=== PATIENT | female | born 1980 | race Caucasian/White ===

== ENCOUNTER 2016-08-18 12:23 | Emergency (ER) | payer OTHER ==
[~2016-08-18 12:23] MED LIST: /MOM400 PO; ACET50TA PO; ANUS2.5C2 TOP; COLA100C PO; DOCU10ELUD PO; EXTR500C4 PO; IBUP-1114 PO; IBUP100SUS PO; MACR100C3 PO; MOTR200T44 PO
--- NOTE | 2016-08-18 13:56 | EDDOCDS ---
Physician Documentation [facility] Name: Nichole Ansari Age: 36 yrs Sex: Female : 1980 Arrival Date: 08/18/2016 Time: 12:23 Bed I9 / 22 Private MD: NO PRIMARY PHYSICIAN, . Disposition: 08/18/16 13:41 Discharged to Home/Self Care. Impression: Urinary tract infection, site not specified. - Condition is Stable. - Discharge Instructions: Urinary Tract Infection, [id number]-[id number]. - Prescriptions for Pyridium 200 mg Oral Tablet - take 1 tablet by ORAL route every 8 hours for 3 days; 9 tablet. Bactrim DS 800- 160 mg Oral Tablet - take 1 tablet by ORAL route every 12 hours for 5 days; 10 tablet. - Medication Reconciliation, Local Pharmacy Hours form. - [facility]; When: 4 - 5 days; Reason: Recheck today's complaints, Continuance of care. - Problem is new. - Symptoms are unchanged. Historical: - Allergies: Erythromycin (Hives); PENICILLINS (Hives); - Home Meds: 1. none - PMHx: Bipolar disorder; Depression; miscarriage; - PSHx: Appendectomy; - Social history: Smoking status: Patient states was never smoker of tobacco. No barriers to communication noted, The patient speaks fluent Greek, Speaks appropriately for age. - Family history: Not pertinent. - : The pt / caregiver states he / she is not on anticoagulants. Home medication list is obtained from the patient. - Exposure Risk Screening:: None identified. Vital Signs: 08/18 12:25 BP 139 / 85; Pulse 84; Resp 18 S; Temp 97.1(O); Pulse Ox 97% on R/A; Weight 133.81 kg / gr2 295 lbs (R); Height 5 ft. 6 in. (167.64 cm) (R); Pain 3/10; 12:25 Body Mass Index 47.61 (133.81 kg, 167.64 cm) gr2 MDM: 12:38 UCG by Nursing ordered. dt4 12:39 Urinalysis Ordered. EDMS 12:40 Urine Culture Ordered. EDMS 13:47 Financial registration complete. mm15 Point of Care Testing: Urine : 13:05 hCG Reading: Negative; Control Reading: Positive; ct3 Ranges: Signatures: Dispatcher [employer] Stevie Kennedy, CREDIT OR LOANS OFFICER CREDIT OR LOANS OFFICER Tata Jay RN RN hs1 Ene Jenkins RN RN dsf Casi Reddy mm15 Racquel Frazier PA-C PAGigi dt4 MTDD
--- NOTE | 2016-08-18 13:56 | EDDOCDS ---
Nurse's Notes [facility] Name: Nichole Ansari Age: 36 yrs Sex: Female : 1980 Arrival Date: 08/18/2016 Time: 12:23 Bed I9 / 22 Private MD: NO PRIMARY PHYSICIAN, . Diagnosis: Urinary tract infection, site not specified Presentation: 08/18 12:27 Presenting complaint: Patient states: thinks UTI -. Adult Sepsis Screening: The patient hs1 does not have new or worsening altered mentation. Patient's respiratory rate is less than 22. Systolic blood pressure is greater than 100. Patient has a qSOFA score of 0- Negative Sepsis Screen. Suicide/Homicide risk assessment- the patient denies having any suicidal and/or homicidal ideations and does not present with any other emotional, behavioral or mental health complaints. Status: Patient is not a community service director or dependent. Transition of care: patient was not received from another setting of care. 12:27 Acuity: ALIS Level 4 hs1 12:27 Method Of Arrival: Walkin/Carried/Asstd hs1 Triage Assessment: 12:28 General: Appears in no apparent distress, comfortable, Behavior is appropriate for age, hs1 cooperative. Pain: Location: low back area Pain currently is 5 out of 10 on a pain scale. HIV screening NA for this visit Offered previously. : Reports burning with urination urgency urinary frequency. Historical: - Allergies: Erythromycin (Hives); PENICILLINS (Hives); - Home Meds: 1. none - PMHx: Bipolar disorder; Depression; miscarriage; - PSHx: Appendectomy; - Social history: Smoking status: Patient states was never smoker of tobacco. No barriers to communication noted, The patient speaks fluent Thai, Speaks appropriately for age. - Family history: Not pertinent. - : The pt / caregiver states he / she is not on anticoagulants. Home medication list is obtained from the patient. - Exposure Risk Screening:: None identified. Screenin:54 Screening information is obtained from the patient. Fall risk: No risks identified. dsf Assistance ADL's: requires no assistance with activities of daily living. Abuse/DV Screen: The patient / caregiver reports he/she is: not in a situation that causes fear, pain or injury. Nutritional screening: No deficits noted. Advance Directives: Currently, there is no health care proxy. Advance Directives: Currently, there is. home support is adequate. Assessment: 13:29 Adult Sepsis Screening: The patient does not have new or worsening altered mentation. dsf Patient's respiratory rate is less than 22. Systolic blood pressure is greater than 100. Patient has a qSOFA score of 0- Negative Sepsis Screen. General: Appears in no apparent distress, Behavior is appropriate for age, cooperative. Pain: Location: low back area Pain currently is 4 out of 10 on a pain scale. Quality of pain is described as sharp. Neurological: Level of Consciousness is awake, alert. Cardiovascular: Capillary refill < 3 seconds. Respiratory: Airway is patent Respiratory effort is even, unlabored, Respiratory pattern is regular, symmetrical. : Reports burning with urination since 2 days ago urinary frequency since 2 days ago. Derm: Skin is pink, warm & dry. 13:54 General: Appears in no apparent distress, comfortable, Behavior is appropriate for age, dsf cooperative. Neurological: Level of Consciousness is awake, alert. Cardiovascular: Capillary refill < 3 seconds. Respiratory: Airway is patent Respiratory effort is even, unlabored, Respiratory pattern is regular, symmetrical. Derm: Skin is pink, warm & dry. Vital Signs: 12:25 BP 139 / 85; Pulse 84; Resp 18 S; Temp 97.1(O); Pulse Ox 97% on R/A; Weight 133.81 kg gr2 (R); Height 5 ft. 6 in. (167.64 cm) (R); Pain 3/10; 12:25 Body Mass Index 47.61 (133.81 kg, 167.64 cm) gr2 Vitals: 12:25 Log In Time: August 18, 2016 at 12:25. gr2 ED Course: 12:24 Patient visited by Luciano Forde. gr2 12:24 NO PRIMARY PHYSICIAN, . is Private Physician. gr2 12:24 Patient moved to Waiting gr2 12:26 Patient visited by Luciano Forde. gr2 12:26 Patient moved to Pre RCE gr2 12:28 Triage Initiated hs1 12:58 Urine Culture Sent. ct3 12:58 Urinalysis Sent. ct3 13:11 Tina Shahid, RN is Primary Nurse. ttb 13:11 Norma Dietrich,ZENA is Primary Nurse. ttb 13:11 Patient moved to I ttb 13:13 [facility] ke 13:14 Patient visited by Stevie Banegas FNP. ke 13:14 Patient visited by Stevie Banegas FNP. ke 13:29 Patient visited by Ene Jenkins RN. dsf 13:40 [facility], [facility] is Referral Physician. ke 13:54 The patient / caregiver is instructed regarding the plan of care and ED course. dsf 13:54 No IV's were initiated during this patient's visit. No procedures done that require dsf assistance. Point of Care Testing: Urine : 13:05 hCG Reading: Negative; Control Reading: Positive; ct3 Ranges: Order Results: Lab Order: Urinalysis; SPEC'M 08/18/16 12:57 Test: APPEARANCE, URINE; Value: HAZY; Range: CLEAR; Status: F Test: COLOR, URINE; Value: YELLOW; Range: YELLOW; Status: F Test: PH,URINE; Value: 6.0; Range: 5.0-9.0; Units: UNITS; Status: F Test: SPECIFIC GRAVITY URINE AUTO; Value: 1.010; Range: 1.002-1.035; Status: F Test: PROTEIN, URINE AUTO; Value: NEGATIVE; Range: NEGATIVE; Units: mg/dL; Status: F Test: GLUCOSE, URINE (UA) AUTO; Value: NEGATIVE; Range: NEGATIVE; Units: mg/dL; Status: F Test: KETONE, URINE AUTO; Value: NEGATIVE; Range: NEGATIVE; Units: mg/dL; Status: F Test: UROBILINOGEN, URINE AUTO; Value: 0.2; Range: 0.0-2.0; Units: mg/dL; Status: F Test: BILIRUBIN, URINE AUTO; Value: NEGATIVE; Range: NEGATIVE; Status: F Test: NITRITE, URINE AUTO; Value: NEGATIVE; Range: NEGATIVE; Status: F Test: LEUKOCYTE ESTERASE, URINE AUTO; Value: 3+; Range: NEGATIVE; Abnormal: Above high normal; Status: F Test: BLOOD, URINE BLOOD; Value: NEGATIVE; Range: NEGATIVE; Status: F Test: WBC, URINE AUTO; Value: 11; Range: 0-3; Abnormal: Above high normal; Units: /HPF; Status: F Test: RBC, URINE AUTO; Value: 7; Range: 0-3; Abnormal: Above high normal; Units: /HPF; Status: F Test: BACTERIA, URINE AUTO; Value: 1+; Range: NEGATIVE; Abnormal: Above high normal; Status: F Test: SQUAMOUS EPITHELIAL CELL UR AU; Value: 6; Range: 0-6; Units: /HPF; Status: F Test: MUCUS, URINE; Value: SMALL; Range: NEGATIVE; Status: F Test: HYALINE CAST, URINE AUTO; Value: 0; Range: 0-1; Units: /LPF; Status: F Outcome: 13:41 Discharge ordered by Provider. 13:54 Discharge Assessment: Patient awake, alert and oriented x 3. No cognitive and/or dsf functional deficits noted. Patient verbalized understanding of disposition instructions. patient administered narcotics - no. The following High Risk Discharge criteria are identified: None. Discharged to home ambulatory. Condition: stable. Discharge instructions given to patient, Instructed on discharge instructions, follow up and referral plans. medication usage, Demonstrated understanding of instructions, medications, Pt was receptive of discharge instructions/ teaching. Prescriptions given X 2. No special radiology studies were completed. Property sent home with patient. 13:55 Patient left the ED. dsf Signatures: Stevie Banegas, PAPER DELIVERER PAPER DELIVERER Tata Jay RN RN hs1 Elise Gooden, PIPELINE GANG SUPERVISOR PIPELINE GANG SUPERVISOR ct3 Ene Jenkins RN RN dsf Manuela Dewitt RN RN Luciano Joseph gr2 MTDD
--- NOTE | 2016-08-20 14:56 | EDDOCDS ---
Physician Documentation [facility] Name: Nichole Ansari Age: 36 yrs Sex: Female : 1980 Arrival Date: 08/18/2016 Time: 12:23 Bed I9 / 22 Private MD: NO PRIMARY PHYSICIAN, . Disposition: 08/18/16 13:41 Discharged to Home/Self Care. Impression: Urinary tract infection, site not specified. - Condition is Stable. - Discharge Instructions: Urinary Tract Infection, [id number]. - Prescriptions for Pyridium 200 mg Oral Tablet - take 1 tablet by ORAL route every 8 hours for 3 days; 9 tablet. Bactrim DS 800- 160 mg Oral Tablet - take 1 tablet by ORAL route every 12 hours for 5 days; 10 tablet. - Medication Reconciliation, Local Pharmacy Hours form. - Follow up[facility]; When: 4 - 5 days; Reason: Recheck today's complaints, Continuance of care. - Problem is new. - Symptoms are unchanged. Historical: - Allergies: Erythromycin (Hives); PENICILLINS (Hives); - Home Meds: 1. none - PMHx: Bipolar disorder; Depression; miscarriage; - PSHx: Appendectomy; - Social history: Smoking status: Patient states was never smoker of tobacco. No barriers to communication noted, The patient speaks fluent Serbian, Speaks appropriately for age. - Family history: Not pertinent. - : The pt / caregiver states he / she is not on anticoagulants. Home medication list is obtained from the patient. - Exposure Risk Screening:: None identified. Vital Signs: 08/18 12:25 BP 139 / 85; Pulse 84; Resp 18 S; Temp 97.1(O); Pulse Ox 97% on R/A; Weight 133.81 kg / gr2 295 lbs (R); Height 5 ft. 6 in. (167.64 cm) (R); Pain 3/10; 12:25 Body Mass Index 47.61 (133.81 kg, 167.64 cm) gr2 MDM: 12:38 UCG by Nursing ordered. dt4 12:39 Urinalysis Ordered. EDMS 12:40 Urine Culture Ordered. EDMS 13:47 Financial registration complete. mm15 14:19 [facility] Payment Agreement was scanned into [employer] and attached to record. mm15 08/19 11:45 T-Sheet-- Draft Copy was scanned into [employer] and attached to record. gb Point of Care Testing: Urine : 08/18 13:05 hCG Reading: Negative; Control Reading: Positive; ct3 Ranges: Signatures: Dispatcher [employer] EDMS Hanna Tolbert, Reg Reg gb Stevie Banegas, CARD ROOM MANAGER CARD ROOM MANAGER Tata Jay RN RN hs1 Ene Jenkins RN RN dsf Casi Reddy mm15 Racquel Frazier PA-C PAGigi dt4 The chart was reviewed and I authenticate all verbal orders and agree with the evaluation and treatment provided.Attachments: 14:19 [facility] Payment Agreement mm15 08/19 11:45 T-Sheet-- Draft Copy gb Chart Complete MTDD
--- NOTE | 2016-08-20 14:56 | EDDOCDS ---
Nurse's Notes [facility] Name: Nichole Ansari Age: 36 yrs Sex: Female : 1980 Arrival Date: 08/18/2016 Time: 12:23 Bed I9 / 22 Private MD: NO PRIMARY PHYSICIAN, . Diagnosis: Urinary tract infection, site not specified Presentation: 08/18 12:27 Presenting complaint: Patient states: thinks UTI -. Adult Sepsis Screening: The patient hs1 does not have new or worsening altered mentation. Patient's respiratory rate is less than 22. Systolic blood pressure is greater than 100. Patient has a qSOFA score of 0- Negative Sepsis Screen. Suicide/Homicide risk assessment- the patient denies having any suicidal and/or homicidal ideations and does not present with any other emotional, behavioral or mental health complaints. Status: Patient is not a customer complaint service supervisor or dependent. Transition of care: patient was not received from another setting of care. 12:27 Acuity: ALIS Level 4 hs1 12:27 Method Of Arrival: Walkin/Carried/Asstd hs1 Triage Assessment: 12:28 General: Appears in no apparent distress, comfortable, Behavior is appropriate for age, hs1 cooperative. Pain: Location: low back area Pain currently is 5 out of 10 on a pain scale. HIV screening NA for this visit Offered previously. : Reports burning with urination urgency urinary frequency. Historical: - Allergies: Erythromycin (Hives); PENICILLINS (Hives); - Home Meds: 1. none - PMHx: Bipolar disorder; Depression; miscarriage; - PSHx: Appendectomy; - Social history: Smoking status: Patient states was never smoker of tobacco. No barriers to communication noted, The patient speaks fluent Malay, Speaks appropriately for age. - Family history: Not pertinent. - : The pt / caregiver states he / she is not on anticoagulants. Home medication list is obtained from the patient. - Exposure Risk Screening:: None identified. Screenin:54 Screening information is obtained from the patient. Fall risk: No risks identified. dsf Assistance ADL's: requires no assistance with activities of daily living. Abuse/DV Screen: The patient / caregiver reports he/she is: not in a situation that causes fear, pain or injury. Nutritional screening: No deficits noted. Advance Directives: Currently, there is no health care proxy. Advance Directives: Currently, there is. home support is adequate. Assessment: 13:29 Adult Sepsis Screening: The patient does not have new or worsening altered mentation. dsf Patient's respiratory rate is less than 22. Systolic blood pressure is greater than 100. Patient has a qSOFA score of 0- Negative Sepsis Screen. General: Appears in no apparent distress, Behavior is appropriate for age, cooperative. Pain: Location: low back area Pain currently is 4 out of 10 on a pain scale. Quality of pain is described as sharp. Neurological: Level of Consciousness is awake, alert. Cardiovascular: Capillary refill < 3 seconds. Respiratory: Airway is patent Respiratory effort is even, unlabored, Respiratory pattern is regular, symmetrical. : Reports burning with urination since 2 days ago urinary frequency since 2 days ago. Derm: Skin is pink, warm & dry. 13:54 General: Appears in no apparent distress, comfortable, Behavior is appropriate for age, dsf cooperative. Neurological: Level of Consciousness is awake, alert. Cardiovascular: Capillary refill < 3 seconds. Respiratory: Airway is patent Respiratory effort is even, unlabored, Respiratory pattern is regular, symmetrical. Derm: Skin is pink, warm & dry. Vital Signs: 12:25 BP 139 / 85; Pulse 84; Resp 18 S; Temp 97.1(O); Pulse Ox 97% on R/A; Weight 133.81 kg gr2 (R); Height 5 ft. 6 in. (167.64 cm) (R); Pain 3/10; 12:25 Body Mass Index 47.61 (133.81 kg, 167.64 cm) gr2 Vitals: 12:25 Log In Time: August 18, 2016 at 12:25. gr2 ED Course: 12:24 Patient visited by Luciano Forde. gr2 12:24 NO PRIMARY PHYSICIAN, . is Private Physician. gr2 12:24 Patient moved to Waiting gr2 12:26 Patient visited by Luciano Forde. gr2 12:26 Patient moved to Pre RCE gr2 12:28 Triage Initiated hs1 12:58 Urine Culture Sent. ct3 12:58 Urinalysis Sent. ct3 13:11 Tina Shahid, RN is Primary Nurse. ttb 13:11 Norma Dietrich,ZENA is Primary Nurse. ttb 13:11 Patient moved to I ttb 13:13 [facility] ke 13:14 Patient visited by Stevie Banegas FNP. ke 13:14 Patient visited by Stevie Banegas FNP. ke 13:29 Patient visited by Ene Jenkins RN. dsf 13:40 [facility], [facility] is Referral Physician. ke 13:54 The patient / caregiver is instructed regarding the plan of care and ED course. dsf 13:54 No IV's were initiated during this patient's visit. No procedures done that require dsf assistance. 14:[address] [facility] Payment Agreement was scanned into [employer] and attached to record. mm15 08/19 11:45 T-Sheet-- Draft Copy was scanned into [employer] and attached to record. gb Point of Care Testing: Urine : 08/18 13:05 hCG Reading: Negative; Control Reading: Positive; ct3 Ranges: Order Results: Lab Order: Urinalysis; SPEC'M 08/18/16 12:57 Test: APPEARANCE, URINE; Value: HAZY; Range: CLEAR; Status: F Test: COLOR, URINE; Value: YELLOW; Range: YELLOW; Status: F Test: PH,URINE; Value: 6.0; Range: 5.0-9.0; Units: UNITS; Status: F Test: SPECIFIC GRAVITY URINE AUTO; Value: 1.010; Range: 1.002-1.035; Status: F Test: PROTEIN, URINE AUTO; Value: NEGATIVE; Range: NEGATIVE; Units: mg/dL; Status: F Test: GLUCOSE, URINE (UA) AUTO; Value: NEGATIVE; Range: NEGATIVE; Units: mg/dL; Status: F Test: KETONE, URINE AUTO; Value: NEGATIVE; Range: NEGATIVE; Units: mg/dL; Status: F Test: UROBILINOGEN, URINE AUTO; Value: 0.2; Range: 0.0-2.0; Units: mg/dL; Status: F Test: BILIRUBIN, URINE AUTO; Value: NEGATIVE; Range: NEGATIVE; Status: F Test: NITRITE, URINE AUTO; Value: NEGATIVE; Range: NEGATIVE; Status: F Test: LEUKOCYTE ESTERASE, URINE AUTO; Value: 3+; Range: NEGATIVE; Abnormal: Above high normal; Status: F Test: BLOOD, URINE BLOOD; Value: NEGATIVE; Range: NEGATIVE; Status: F Test: WBC, URINE AUTO; Value: 11; Range: 0-3; Abnormal: Above high normal; Units: /HPF; Status: F Test: RBC, URINE AUTO; Value: 7; Range: 0-3; Abnormal: Above high normal; Units: /HPF; Status: F Test: BACTERIA, URINE AUTO; Value: 1+; Range: NEGATIVE; Abnormal: Above high normal; Status: F Test: SQUAMOUS EPITHELIAL CELL UR AU; Value: 6; Range: 0-6; Units: /HPF; Status: F Test: MUCUS, URINE; Value: SMALL; Range: NEGATIVE; Status: F Test: HYALINE CAST, URINE AUTO; Value: 0; Range: 0-1; Units: /LPF; Status: F Lab Order: Urine Culture; SPEC'M 08/18/16 12:57 Test: URINE CULTURE; Value: <EXTERNAL COMMENT eCWMed> FULL REPORT IN LAB NOTES (eCW and Medent).; Status: F Test: URINE CULTURE; Value: URINE CULTURE RESULT NO GROWTH; Status: F Outcome: 13:41 Discharge ordered by Provider. ke 13:54 Discharge Assessment: Patient awake, alert and oriented x 3. No cognitive and/or dsf functional deficits noted. Patient verbalized understanding of disposition instructions. patient administered narcotics - no. The following High Risk Discharge criteria are identified: None. Discharged to home ambulatory. Condition: stable. Discharge instructions given to patient, Instructed on discharge instructions, follow up and referral plans. medication usage, Demonstrated understanding of instructions, medications, Pt was receptive of discharge instructions/ teaching. Prescriptions given X 2. No special radiology studies were completed. Property sent home with patient. 13:55 Patient left the ED. dsf Signatures: Hanna Tolbert, Reg Reg gb Stevie Banegas, LETTERSET PRESS SET UP OPERATOR LETTERSET PRESS SET UP OPERATOR aTta Jay RN RN hs1 Elise Gooden, MILLING SUPERVISOR MILLING SUPERVISOR ct3 Ene Jenkins RN RN dsf Conner, Teresa, RN RN ttb Raymond, Gainslee gr2 Casi Reddy mm15 Chart Complete MTDD
--- NOTE | 2016-08-20 14:56 | EDDOCDS ---
Physician Documentation [facility] Name: Nichole Ansari Age: 36 yrs Sex: Female : 1980 Arrival Date: 08/18/2016 Time: 12:23 Bed I9 / 22 Private MD: NO PRIMARY PHYSICIAN, . Disposition: 08/18/16 13:41 Discharged to Home/Self Care. Impression: Urinary tract infection, site not specified. - Condition is Stable. - Discharge Instructions: Urinary Tract Infection, [id number]. - Prescriptions for Pyridium 200 mg Oral Tablet - take 1 tablet by ORAL route every 8 hours for 3 days; 9 tablet. Bactrim DS 800- 160 mg Oral Tablet - take 1 tablet by ORAL route every 12 hours for 5 days; 10 tablet. - Medication Reconciliation, Local Pharmacy Hours form. - Follow up[facility]; When: 4 - 5 days; Reason: Recheck today's complaints, Continuance of care. - Problem is new. - Symptoms are unchanged. Historical: - Allergies: Erythromycin (Hives); PENICILLINS (Hives); - Home Meds: 1. none - PMHx: Bipolar disorder; Depression; miscarriage; - PSHx: Appendectomy; - Social history: Smoking status: Patient states was never smoker of tobacco. No barriers to communication noted, The patient speaks fluent Turkish, Speaks appropriately for age. - Family history: Not pertinent. - : The pt / caregiver states he / she is not on anticoagulants. Home medication list is obtained from the patient. - Exposure Risk Screening:: None identified. Vital Signs: 08/18 12:25 BP 139 / 85; Pulse 84; Resp 18 S; Temp 97.1(O); Pulse Ox 97% on R/A; Weight 133.81 kg / gr2 295 lbs (R); Height 5 ft. 6 in. (167.64 cm) (R); Pain 3/10; 12:25 Body Mass Index 47.61 (133.81 kg, 167.64 cm) gr2 MDM: 12:38 UCG by Nursing ordered. dt4 12:39 Urinalysis Ordered. EDMS 12:40 Urine Culture Ordered. EDMS 13:47 Financial registration complete. mm15 14:19 [facility] Payment Agreement was scanned into [employer] and attached to record. mm15 08/19 11:45 T-Sheet-- Draft Copy was scanned into [employer] and attached to record. gb Point of Care Testing: Urine : 08/18 13:05 hCG Reading: Negative; Control Reading: Positive; ct3 Ranges: Signatures: Dispatcher [employer] EDMS Hanna Tolbert, Reg Reg gb Stevie Banegas, SKIRT MAKER SKIRT MAKER Tata Jay RN RN hs1 Ene Jenkins RN RN dsf Casi Reddy mm15 Racquel Frazier PA-C PAGigi dt4 The chart was reviewed and I authenticate all verbal orders and agree with the evaluation and treatment provided.Attachments: 14:19 [facility] Payment Agreement mm15 08/19 11:45 T-Sheet-- Draft Copy gb Chart Complete MTDD
== END 2016-08-18 13:55 | disposition home or self-care (01) ==
LOC: M ED 12:23
DX: N39.0 Urinary tract infection, site not specified (principal); F32.9 Major depressive disorder, single episode, unspecified; Z88.0 Allergy status to penicillin; Z88.1 Allergy status to other antibiotic agents

== ENCOUNTER → 2017-02-01 | Outpatient (REF) | payer OTHER, MEDICAID ==
[~2017-02-01] MED LIST changes: -COLA100C PO; +COLA100C5 PO; -MACR100C3 PO; +MACR100C43 PO
== END ==
LOC: M LAB REF 16:59
PROVIDERS: ATTEND Specialist
DX: R30.0 Dysuria (principal)

== ENCOUNTER → 2017-02-11 | Outpatient (CLI) | payer MEDICAID, OTHER ==
[~2017-02-11] MED LIST changes: +E-Z-GAS II EFFERVESCENT PACKET (SODIUM BICARB./CITRIC ACID/SIMETHICONE) As Ordered ONE; +E-Z-HD 98% w/w 340GM SUSP BTL As Ordered ONE; +E-Z-PAQUE 96% w/w SUSP 176GM BTL As Ordered ONE
[2017-02-11 10:33] LABS: BASO % 0.6 % (0.0-1.0); EOS # 0.2 K/mm3 (0.0-0.50); EOS % 3.2 % (0.0-3.0); LARGE UNSTAINED CELL # 0.1 K/mm3 (0.0-0.4); LARGE UNSTAINED CELL % 1.5 % (0.0-4.0); LYMPH # 2.1 K/mm3 (1.5-4.5); LYMPH % 33.8 % (24.0-44.0); MEAN CORPUSCULAR HEMOGLOBIN 23.8 pg (27.0-33.0); MEAN CORPUSCULAR HGB CONC 31.1 g/dl (32.0-36.5); MEAN CORPUSCULAR VOLUME 76.6 fl (80.0-96.0); MONO # 0.3 K/mm3 (0.0-0.8); MONO % 5.2 % (0.0-5.0); NEUTROPHILS # 3.3 K/mm3 (1.8-7.7); NEUTROPHILS % 55.6 % (36.0-66.0); PLATELET COUNT, AUTOMATED 350 k/mm3 (150-450); RED CELL DISTRIBUTION WIDTH 16.9 % (11.5-14.5)
[2017-02-11 10:58] LABS: ALBUMIN 3.2 GM/DL (3.2-5.2); ALBUMIN/GLOBULIN RATIO 0.89 (1.00-1.93); ALKALINE PHOSPHATASE 95 U/L (45-117); ALT/SGPT 22 U/L (12-78); ANION GAP 9 MEQ/L (8-16); AST/SGOT 20 U/L (15-37); BILIRUBIN,TOTAL 0.4 MG/DL (0.2-1.0); BLOOD UREA NITROGEN 9 MG/DL (7-18); CALCIUM LEVEL 8.3 MG/DL (8.5-10.1); CARBON DIOXIDE LEVEL 27 MEQ/L (21-32); CHLORIDE LEVEL 106 MEQ/L (98-107); CHOLESTEROL LEVEL 165 MG/DL (<200); CREATININE FOR GFR 1.06 MG/DL (0.55-1.02); FREE T4 1.01 NG/DL (0.76-1.46); GLOMERULAR FILTRATION RATE > 60.0 (>60); GLUCOSE, FASTING 85 MG/DL (70-105); SODIUM LEVEL 142 MEQ/L (136-145); TOTAL PROTEIN 6.8 GM/DL (6.4-8.2); TRIGLYCERIDES LEVEL 73 MG/DL (<150)
--- NOTE | 2017-02-11 22:18 | REP ---
Esophagram The procedure was performed under the direct supervision of Dr. Durand. The images were reviewed with Dr. Durand. A single view PA chest x-ray is submitted as a hydroelectric plant structural engineer film. The superior mediastinal structures are midline. The heart size is within normal limits. The lungs are clear. Liquid barium and gas producing granules were given in the erect position as well as liquid barium in the prone oblique positions in order to perform a double contrast esophagram examination. The oral and pharyngeal stages of deglutition are unremarkable. Esophageal transport is prompt and efficient and there is no esophagitis, stricture or mucosal ring. There is a small sliding-type hiatal hernia. Gastroesophageal reflux is not demonstrated on this examination. Impression: there is a small sliding-type hiatal hernia otherwise unremarkable double contrast esophagram examination. 34 seconds of fluoro time was utilized for this procedure. Reviewed by ADRIEL England 02/11/2017 02:48 PSigned by Brooks Durand MD 02/11/2017 10:08 P
== END ==
LOC: M LAB 09:01
PROVIDERS: ATTEND Nurse Practitioner Family
DX: Z00.00 Encounter for general adult medical examination without abnormal findings (principal); E66.9 Obesity, unspecified; F41.8 Other specified anxiety disorders; Z13.220 Encounter for screening for lipoid disorders; R13.14 Dysphagia, pharyngoesophageal phase

== ENCOUNTER → 2017-03-03 | Outpatient (REF) | payer OTHER ==
[~2017-03-03] MED LIST changes: -E-Z-GAS II EFFERVESCENT PACKET (SODIUM BICARB./CITRIC ACID/SIMETHICONE) As Ordered ONE; -E-Z-HD 98% w/w 340GM SUSP BTL As Ordered ONE; -E-Z-PAQUE 96% w/w SUSP 176GM BTL As Ordered ONE
[2017-03-03 13:22] LABS: BASO % 0.4 % (0.0-1.0); EOS # 0.2 K/mm3 (0.0-0.50); EOS % 3.4 % (0.0-3.0); LARGE UNSTAINED CELL # 0.1 K/mm3 (0.0-0.4); LARGE UNSTAINED CELL % 1.2 % (0.0-4.0); LYMPH # 1.8 K/mm3 (1.5-4.5); LYMPH % 26.6 % (24.0-44.0); MEAN CORPUSCULAR HEMOGLOBIN 24.5 pg (27.0-33.0); MEAN CORPUSCULAR HGB CONC 31.5 g/dl (32.0-36.5); MEAN CORPUSCULAR VOLUME 77.9 fl (80.0-96.0); MONO # 0.3 K/mm3 (0.0-0.8); MONO % 4.3 % (0.0-5.0); NEUTROPHILS # 4.3 K/mm3 (1.8-7.7); PLATELET COUNT, AUTOMATED 408 k/mm3 (150-450); RED CELL DISTRIBUTION WIDTH 17.3 % (11.5-14.5); WHITE BLOOD COUNT 6.7 K/mm3 (4.0-10.0)
[2017-03-03 14:02] LABS: FREE T4 1.08 NG/DL (0.76-1.46); PERCENT SATURATION 8.1 % (13.2-45.0)
== END ==
LOC: M SFHCPLAZ 11:14
PROVIDERS: ATTEND Nurse Practitioner Family
DX: K21.0 Gastro-esophageal reflux disease with esophagitis (principal); R94.6 Abnormal results of thyroid function studies

== ENCOUNTER → 2017-04-05 | Outpatient (REF) | payer OTHER | LOC: M LAB REF 12:57 | PROVIDERS: ATTEND Physician Assistant Medical | DX: R30.0 Dysuria (principal) ==

== ENCOUNTER → 2017-06-01 | Outpatient (REF) | payer OTHER | LOC: M LAB REF 09:34 | PROVIDERS: ATTEND Physician Assistant | DX: R30.0 Dysuria (principal) ==

== ENCOUNTER → 2017-07-28 | Outpatient (REF) | payer OTHER ==
[2017-07-28 16:10] LABS: APPEARANCE, URINE CLEAR (CLEAR); BACTERIA, URINE AUTO 1+ (NEGATIVE); BILIRUBIN, URINE AUTO NEGATIVE (NEGATIVE); BLOOD, URINE BLOOD NEGATIVE (NEGATIVE); COLOR, URINE YELLOW (YELLOW); GLUCOSE, URINE (UA) AUTO NEGATIVE (NEGATIVE); KETONE, URINE AUTO NEGATIVE (NEGATIVE); LEUKOCYTE ESTERASE, URINE AUTO 3+ (NEGATIVE); NITRITE, URINE AUTO NEGATIVE (NEGATIVE); PROTEIN, URINE AUTO NEGATIVE (NEGATIVE); RBC, URINE AUTO 1 /HPF (0-3); SPECIFIC GRAVITY URINE AUTO 1.006 (1.002-1.035); SQUAMOUS EPITHELIAL CELL UR AU 1 /HPF (0-6); UROBILINOGEN, URINE AUTO 0.2 mg/dL (0.0-2.0); WBC, URINE AUTO 1 /HPF (0-3)
== END ==
LOC: M LAB REF 15:49
DX: N39.0 Urinary tract infection, site not specified (principal)

== ENCOUNTER 2017-10-02 16:02 | Emergency (ER) | payer OTHER | END 2017-10-02 16:45 | disposition home or self-care (01) | LOC: M ED 16:02 | DX: N30.90 Cystitis, unspecified without hematuria (principal); E66.9 Obesity, unspecified; Z88.0 Allergy status to penicillin; Z88.1 Allergy status to other antibiotic agents | CPT/HCPCS: 81025 ==

== ENCOUNTER 2017-12-05 17:37 | Emergency (ER) | payer OTHER ==
[2017-12-05 18:52] LABS: BASO # 0.1 10^3/uL (0.0-0.2); BASO % 0.5 % (0.0-1.0); EOS # 0.3 10^3/uL (0.0-0.50); EOS % 3.4 % (0.0-3.0); HEMATOCRIT 38.3 % (36.0-47.0); HEMOGLOBIN 12.1 g/dl (12.0-15.5); IMMATURE GRANULOCYTE % 0.3 % (0-3.0); LYMPH # 2.1 10^3/uL (1.5-4.5); LYMPH % 22.8 % (24.0-44.0); MEAN CORPUSCULAR HEMOGLOBIN 25.8 pg (27.0-33.0); MEAN CORPUSCULAR HGB CONC 31.6 g/dl (32.0-36.5); MEAN CORPUSCULAR VOLUME 81.7 fl (80.0-96.0); MONO # 0.6 10^3/uL (0.0-0.8); MONO % 5.9 % (0.0-5.0); NEUTROPHILS # 6.3 10^3/uL (1.8-7.7); NEUTROPHILS % 67.1 % (36.0-66.0); PLATELET COUNT, AUTOMATED 338 10^3/uL (150-450); RED BLOOD COUNT 4.69 10^6/uL (4.00-5.40); RED CELL DISTRIBUTION WIDTH 16.3 % (11.5-14.5); WHITE BLOOD COUNT 9.4 10^3/uL (4.0-10.0)
[2017-12-05 19:01] LABS: ANION GAP 5 MEQ/L (8-16); BLOOD UREA NITROGEN 11 MG/DL (7-18); CALCIUM LEVEL 8.8 MG/DL (8.5-10.1); CARBON DIOXIDE LEVEL 27 MEQ/L (21-32); CHLORIDE LEVEL 109 MEQ/L (98-107); CPK CREATINE PHOSPHOKINASE 61 U/L (26-192); CREATININE FOR GFR 1.13 MG/DL (0.55-1.30); GLOMERULAR FILTRATION RATE 57.7 (>60); GLUCOSE, FASTING 92 MG/DL (70-100); POTASSIUM SERUM 3.9 MEQ/L (3.5-5.1); SODIUM LEVEL 141 MEQ/L (136-145); TROPONIN I < 0.02 NG/ML (< 0.10)
[2017-12-05 19:02] LABS: CK-MB VALUE MASS < 1.0 NG/ML (<3.6); MB/CK RELATIVE INDEX 1.63 (< OR =4)
[2017-12-05 19:03] LABS: INR 0.95; PARTIAL THROMBOPLASTIN TIME 23.5 SECONDS (26.8-37.9); PROTHROMBIN TIME 12.8 SECONDS (12.4-14.5)
[2017-12-05] MEDS: NS 1,000 ML IV (19:30)
[2017-12-05] MEDS: KETOROLAC 30 MG/ML VIAL (J1885) IV (19:45)
[2017-12-05 21:16] LABS: CK-MB VALUE MASS < 1.0 NG/ML (<3.6); CPK CREATINE PHOSPHOKINASE 59 U/L (26-192); MB/CK RELATIVE INDEX 1.69 (< OR =4); TROPONIN I < 0.02 NG/ML (< 0.10)
== END 2017-12-05 22:47 | disposition home or self-care (01) ==
LOC: M ED 17:37
DX: R07.89 Other chest pain (principal); Z88.0 Allergy status to penicillin; Z88.1 Allergy status to other antibiotic agents
CPT/HCPCS: J1885

== ENCOUNTER → 2017-12-19 | Outpatient (REF) | payer OTHER ==
[2017-12-19 18:49] LABS: APPEARANCE, URINE HAZY (CLEAR); BACTERIA, URINE AUTO 2+ (NEGATIVE); BILIRUBIN, URINE AUTO NEGATIVE (NEGATIVE); BLOOD, URINE BLOOD NEGATIVE (NEGATIVE); COLOR, URINE YELLOW (YELLOW); GLUCOSE, URINE (UA) AUTO NEGATIVE (NEGATIVE); KETONE, URINE AUTO NEGATIVE (NEGATIVE); LEUKOCYTE ESTERASE, URINE AUTO 3+ (NEGATIVE); MUCUS, URINE SMALL (NEGATIVE); NITRITE, URINE AUTO NEGATIVE (NEGATIVE); PROTEIN, URINE AUTO NEGATIVE (NEGATIVE); RBC, URINE AUTO 2 /HPF (0-3); SPECIFIC GRAVITY URINE AUTO 1.019 (1.002-1.035); SQUAMOUS EPITHELIAL CELL UR AU 3 /HPF (0-6); UROBILINOGEN, URINE AUTO 0.2 mg/dL (0.0-2.0); WBC, URINE AUTO 18 /HPF (0-3)
== END ==
LOC: M LAB REF 17:12
DX: N39.0 Urinary tract infection, site not specified (principal)

== ENCOUNTER → 2018-01-19 | Outpatient (REF) | payer OTHER ==
[2018-01-19 20:14] LABS: APPEARANCE, URINE CLEAR (CLEAR); BACTERIA, URINE AUTO NEGATIVE (NEGATIVE); BILIRUBIN, URINE AUTO NEGATIVE (NEGATIVE); BLOOD, URINE BLOOD NEGATIVE (NEGATIVE); COLOR, URINE YELLOW (YELLOW); GLUCOSE, URINE (UA) AUTO NEGATIVE (NEGATIVE); KETONE, URINE AUTO NEGATIVE (NEGATIVE); LEUKOCYTE ESTERASE, URINE AUTO 3+ (NEGATIVE); MUCUS, URINE SMALL (NEGATIVE); NITRITE, URINE AUTO NEGATIVE (NEGATIVE); PROTEIN, URINE AUTO NEGATIVE (NEGATIVE); RBC, URINE AUTO 1 /HPF (0-3); SQUAMOUS EPITHELIAL CELL UR AU 0 /HPF (0-6); UROBILINOGEN, URINE AUTO 0.2 mg/dL (0.0-2.0); WBC, URINE AUTO 10 /HPF (0-3)
[2018-01-19 20:32] LABS: CHLAMYDIA DNA AMPLIFICATION NEGATIVE (NEGATIVE); GC DNA AMPLIFICATION NEGATIVE (NEGATIVE)
== END ==
LOC: M LAB REF 17:12
DX: N39.0 Urinary tract infection, site not specified (principal)
CPT/HCPCS: 81001

== ENCOUNTER → 2018-01-25 | Outpatient (REF) | payer OTHER ==
[2018-01-25 23:50] LABS: CHLAMYDIA DNA AMPLIFICATION NEGATIVE (NEGATIVE); GC DNA AMPLIFICATION NEGATIVE (NEGATIVE)
== END ==
LOC: M LAB REF 17:36
DX: A59.9 Trichomoniasis, unspecified (principal)
CPT/HCPCS: 87086

== ENCOUNTER 2018-03-06 17:15 | Emergency (ER) | payer OTHER ==
[2018-03-06] MEDS: diphenhydrAMINE 50 MG CAP PO (16:29)
[2018-03-06] MEDS: predniSONE 20 MG TAB PO (16:30)
== END 2018-03-06 18:17 | disposition home or self-care (01) ==
LOC: M ED 17:15
DX: T63.441A Toxic effect of venom of bees, accidental (unintentional), initial encounter (principal); Y92.099 Unspecified place in other non-institutional residence as the place of occurrence of the external cause; Y93.9 Activity, unspecified; F32.9 Major depressive disorder, single episode, unspecified; F41.9 Anxiety disorder, unspecified; Z91.030 Bee allergy status; Z88.0 Allergy status to penicillin; Z88.1 Allergy status to other antibiotic agents
CPT/HCPCS: 99283

== ENCOUNTER → 2018-03-25 | Outpatient (REF) | payer OTHER ==
[2018-03-25 22:26] LABS: APPEARANCE, URINE CLEAR (CLEAR); BACTERIA, URINE AUTO NEGATIVE (NEGATIVE); BILIRUBIN, URINE AUTO NEGATIVE (NEGATIVE); BLOOD, URINE BLOOD NEGATIVE (NEGATIVE); COLOR, URINE YELLOW (YELLOW); GLUCOSE, URINE (UA) AUTO NEGATIVE (NEGATIVE); KETONE, URINE AUTO NEGATIVE (NEGATIVE); LEUKOCYTE ESTERASE, URINE AUTO 3+ (NEGATIVE); MUCUS, URINE SMALL (NEGATIVE); NITRITE, URINE AUTO NEGATIVE (NEGATIVE); PROTEIN, URINE AUTO NEGATIVE (NEGATIVE); RBC, URINE AUTO 0 /HPF (0-3); SPECIFIC GRAVITY URINE AUTO 1.011 (1.002-1.035); SQUAMOUS EPITHELIAL CELL UR AU 1 /HPF (0-6); UROBILINOGEN, URINE AUTO 0.2 mg/dL (0.0-2.0); WBC, URINE AUTO 7 /HPF (0-3)
== END ==
LOC: M LAB REF 09:37
DX: N39.0 Urinary tract infection, site not specified (principal)
CPT/HCPCS: 81001

== ENCOUNTER 2018-04-20 16:30 | Emergency (ER) | payer OTHER ==
[2018-04-20 17:05] LABS: CONTROL LINE UCG INT CTR LINE PRESENT; URINE PREG TEST NEGATIVE (NEGATIVE)
[2018-04-20 17:07] LABS: KETONE, URINE AUTO RFX NEGATIVE (NEGATIVE); NITRITE, URINE AUTO RFX NEGATIVE (NEGATIVE); RBC, URINE AUTO RFX 4 /HPF (0-3); SPECIFIC GRAVITY UR AUTO RFX 1.006 (1.002-1.035); SQUAM EPITHELIAL CELL UR AURFX 3 /HPF (0-6)
[2018-04-20 17:08] LABS: LEUKOCYTE ESTERASE UR AUTO RFX 3+ (NEGATIVE); WBC, URINE AUTO RFX 21 /HPF (0-3)
[2018-04-20] MEDS: KETOROLAC 60 MG/2 ML VIAL (J1885) IM (18:15)
[2018-04-20 18:20] LABS: BASO % 0.3 % (0.0-1.0); EOS # 0.3 10^3/uL (0.0-0.50); EOS % 3.3 % (0.0-3.0); HEMATOCRIT 39.2 % (36.0-47.0); IMMATURE GRANULOCYTE % 0.6 % (0-3.0); LYMPH # 2.5 10^3/uL (1.5-4.5); LYMPH % 27.8 % (24.0-44.0); MEAN CORPUSCULAR HEMOGLOBIN 25.4 pg (27.0-33.0); MEAN CORPUSCULAR HGB CONC 30.6 g/dl (32.0-36.5); MEAN CORPUSCULAR VOLUME 83.1 fl (80.0-96.0); MONO # 0.7 10^3/uL (0.0-0.8); MONO % 7.3 % (0.0-5.0); NEUTROPHILS # 5.5 10^3/uL (1.8-7.7); NEUTROPHILS % 60.7 % (36.0-66.0); PLATELET COUNT, AUTOMATED 361 10^3/uL (150-450); RED BLOOD COUNT 4.72 10^6/uL (4.00-5.40); RED CELL DISTRIBUTION WIDTH 16.4 % (11.5-14.5)
[2018-04-20 19:08] LABS: ALBUMIN 3.3 GM/DL (3.2-5.2); ALBUMIN/GLOBULIN RATIO 0.89 (1.00-1.93); ALKALINE PHOSPHATASE 98 U/L (45-117); ALT/SGPT 23 U/L (12-78); ANION GAP 6 MEQ/L (8-16); AST/SGOT 19 U/L (7-37); BILIRUBIN,DIRECT 0.1 MG/DL (0.0-0.2); BILIRUBIN,TOTAL 0.4 MG/DL (0.2-1.0); BLOOD UREA NITROGEN 10 MG/DL (7-18); CALCIUM LEVEL 8.7 MG/DL (8.5-10.1); CARBON DIOXIDE LEVEL 29 MEQ/L (21-32); CHLORIDE LEVEL 107 MEQ/L (98-107); CREATININE FOR GFR 1.09 MG/DL (0.55-1.30); GLOMERULAR FILTRATION RATE 59.8 (>60); GLUCOSE, FASTING 84 MG/DL (70-100); LIPASE 291 U/L (73-393); POTASSIUM SERUM 4.2 MEQ/L (3.5-5.1); SODIUM LEVEL 142 MEQ/L (136-145)
[2018-04-20] MEDS: NITROFURANTOIN (MACROBID) 100 MG CAP PO (20:45)
[2018-04-20] MEDS: CYCLOBENZAPRINE 10 MG TAB PO (20:45)
== END 2018-04-20 20:52 | disposition home or self-care (01) ==
LOC: M ED 16:30
DX: K82.4 Cholesterolosis of gallbladder (principal); F41.9 Anxiety disorder, unspecified; F33.9 Major depressive disorder, recurrent, unspecified; Z88.0 Allergy status to penicillin; Z88.1 Allergy status to other antibiotic agents; Z91.030 Bee allergy status
CPT/HCPCS: J1885

== ENCOUNTER → 2018-05-17 | Outpatient (REF) | payer OTHER ==
[2018-05-17 17:55] LABS: APPEARANCE, URINE HAZY (CLEAR); BACTERIA, URINE AUTO NEGATIVE (NEGATIVE); BILIRUBIN, URINE AUTO NEGATIVE (NEGATIVE); BLOOD, URINE BLOOD NEGATIVE (NEGATIVE); COLOR, URINE YELLOW (YELLOW); GLUCOSE, URINE (UA) AUTO NEGATIVE (NEGATIVE); KETONE, URINE AUTO NEGATIVE (NEGATIVE); LEUKOCYTE ESTERASE, URINE AUTO 3+ (NEGATIVE); MUCUS, URINE SMALL (NEGATIVE); NITRITE, URINE AUTO NEGATIVE (NEGATIVE); PROTEIN, URINE AUTO NEGATIVE (NEGATIVE); RBC, URINE AUTO 2 /HPF (0-3); SPECIFIC GRAVITY URINE AUTO 1.021 (1.002-1.035); SQUAMOUS EPITHELIAL CELL UR AU 3 /HPF (0-6); UROBILINOGEN, URINE AUTO 0.2 mg/dL (0.0-2.0); WBC, URINE AUTO 12 /HPF (0-3)
== END ==
LOC: M LAB REF 16:59
DX: N39.0 Urinary tract infection, site not specified (principal)

== ENCOUNTER 2018-05-21 12:05 | Emergency (ER) | payer OTHER ==
[2018-05-21 12:57] LABS: INFLUENZA A AMPLIFICATION NEGATIVE (NEGATIVE); INFLUENZA B AMPLIFICATION NEGATIVE (NEGATIVE); RSV AMPLIFICATION NEGATIVE (NEGATIVE)
[2018-05-21] MEDS: IBUPROFEN 600 MG TAB PO (12:57)
== END 2018-05-21 13:15 | disposition home or self-care (01) ==
LOC: M ED 12:05
DX: J02.9 Acute pharyngitis, unspecified (principal); B34.9 Viral infection, unspecified; F43.10 Post-traumatic stress disorder, unspecified; Z88.0 Allergy status to penicillin; Z88.1 Allergy status to other antibiotic agents; Z91.030 Bee allergy status
CPT/HCPCS: 87631

== ENCOUNTER → 2018-07-20 | Outpatient (REF) | payer OTHER ==
[~2018-07-20] MED LIST changes: +BACT800T5 PO; +BENA25CA4 PO; +CYCL10TA PO; +EPIP0.3I2 IM; +IBUP-1022 PO; +MAPA500T2 PO; +NAPR-50 PO; +PRED20TA PO; +TYLE1TAB5 PO
[2018-07-20 17:43] LABS: BASO % 0.4 % (0.0-1.0); EOS # 0.3 10^3/uL (0.0-0.50); EOS % 3.7 % (0.0-3.0); HEMATOCRIT 37.6 % (36.0-47.0); HEMOGLOBIN 11.7 g/dl (12.0-15.5); LYMPH # 2.4 10^3/uL (1.5-4.5); LYMPH % 31.6 % (24.0-44.0); MEAN CORPUSCULAR HEMOGLOBIN 25.7 pg (27.0-33.0); MEAN CORPUSCULAR HGB CONC 31.1 g/dl (32.0-36.5); MEAN CORPUSCULAR VOLUME 82.5 fl (80.0-96.0); MONO # 0.4 10^3/uL (0.0-0.8); MONO % 5.2 % (0.0-5.0); NEUTROPHILS # 4.4 10^3/uL (1.8-7.7); NEUTROPHILS % 58.7 % (36.0-66.0); PLATELET COUNT, AUTOMATED 414 10^3/uL (150-450); RED BLOOD COUNT 4.56 10^6/uL (4.00-5.40); WHITE BLOOD COUNT 7.5 10^3/uL (4.0-10.0)
[2018-07-20 17:49] LABS: ALBUMIN 3.2 GM/DL (3.2-5.2); ALT/SGPT 24 U/L (12-78); BILIRUBIN,TOTAL 0.4 MG/DL (0.2-1.0); BLOOD UREA NITROGEN 9 MG/DL (7-18); CALCIUM LEVEL 8.4 MG/DL (8.5-10.1); CARBON DIOXIDE LEVEL 25 MEQ/L (21-32); CHLORIDE LEVEL 107 MEQ/L (98-107); CHOLESTEROL LEVEL 160 MG/DL (<200); CHOLESTEROL RISK RATIO 3.137 (<5); CREATININE FOR GFR 0.97 MG/DL (0.55-1.30); GLOMERULAR FILTRATION RATE > 60.0 (>60); GLUCOSE, FASTING 89 MG/DL (70-100); HDL CHOLESTEROL 51 MG/DL (>40); HEMOGLOBIN A1c 5.1 %; LDL CHOLESTEROL 91 MG/DL (<100); NON-HDL-C 109 MG/DL; POTASSIUM SERUM 3.8 MEQ/L (3.5-5.1); SODIUM LEVEL 142 MEQ/L (136-145); TOTAL PROTEIN 7.2 GM/DL (6.4-8.2); TRIGLYCERIDES LEVEL 88 MG/DL (<150)
== END ==
LOC: M LAB REF 16:46
PROVIDERS: ATTEND Nurse Practitioner Family
DX: E66.01 Morbid (severe) obesity due to excess calories (principal); Z13.9 Encounter for screening, unspecified

== ENCOUNTER → 2018-07-27 | Outpatient (REF) | payer OTHER ==
[2018-07-27 17:09] LABS: APPEARANCE, URINE HAZY (CLEAR); BACTERIA, URINE AUTO NEGATIVE (NEGATIVE); BILIRUBIN, URINE AUTO NEGATIVE (NEGATIVE); BLOOD, URINE BLOOD 1+ (NEGATIVE); COLOR, URINE YELLOW (YELLOW); GLUCOSE, URINE (UA) AUTO NEGATIVE (NEGATIVE); KETONE, URINE AUTO NEGATIVE (NEGATIVE); LEUKOCYTE ESTERASE, URINE AUTO 3+ (NEGATIVE); MUCUS, URINE LARGE (NEGATIVE); NITRITE, URINE AUTO NEGATIVE (NEGATIVE); PROTEIN, URINE AUTO 1+ mg/dL (NEGATIVE); RBC, URINE AUTO 28 /HPF (0-3); SPECIFIC GRAVITY URINE AUTO 1.028 (1.002-1.035); SQUAMOUS EPITHELIAL CELL UR AU 5 /HPF (0-6); UROBILINOGEN, URINE AUTO 0.2 mg/dL (0.0-2.0); WBC, URINE AUTO 21 /HPF (0-3)
== END ==
LOC: M LAB REF 16:12
PROVIDERS: ATTEND Physician Assistant
DX: N39.0 Urinary tract infection, site not specified (principal)

== ENCOUNTER → 2018-08-08 | Outpatient (CLI) | payer OTHER ==
--- NOTE | 2018-08-08 14:58 | REP ---
Clinical: Nontraumatic right knee pain Technique: AP, lateral, bilateral oblique and sunrise views. Findings: A small bone island is identified along the posterior aspect of the distal femoral metaphysis. Zimmerman view demonstrates posterior patellar sclerosis and lateral joint space narrowing suggesting mild/early moderate arthritic changes. Remainder of the examination including tibiofemoral joint appears relatively age-appropriate. 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 Electronically Signed by Erwin Encinas MD 08/08/2018 02:49 P
== END ==
LOC: M WUC 14:33
PROVIDERS: ATTEND Physician Assistant
DX: M17.11 Unilateral primary osteoarthritis, right knee (principal); S80.01XA Contusion of right knee, initial encounter; Y99.8 Other external cause status; Y92.89 Other specified places as the place of occurrence of the external cause; Y93.89 Activity, other specified; X58.XXXA Exposure to other specified factors, initial encounter

== ENCOUNTER → 2018-11-27 | Outpatient (REF) | payer OTHER ==
[~2018-11-27] MED LIST changes: -/MOM400 PO; -ACET50TA PO; -DOCU10ELUD PO; +DOCU5LIQ PO; +IBUP100S44 PO; -IBUP100SUS PO; +MAPA500T17 PO; +MILK10SU PO; -NAPR-50 PO; +NAPR-837 PO; +OSEL75CA PO
[2018-11-27 18:17] LABS: APPEARANCE, URINE HAZY (CLEAR); BACTERIA, URINE AUTO NEGATIVE (NEGATIVE); BILIRUBIN, URINE AUTO NEGATIVE (NEGATIVE); BLOOD, URINE BLOOD NEGATIVE (NEGATIVE); COLOR, URINE YELLOW (YELLOW); GLUCOSE, URINE (UA) AUTO NEGATIVE (NEGATIVE); KETONE, URINE AUTO NEGATIVE (NEGATIVE); LEUKOCYTE ESTERASE, URINE AUTO 3+ (NEGATIVE); MUCUS, URINE SMALL (NEGATIVE); NITRITE, URINE AUTO NEGATIVE (NEGATIVE); PROTEIN, URINE AUTO NEGATIVE (NEGATIVE); RBC, URINE AUTO 1 /HPF (0-3); SPECIFIC GRAVITY URINE AUTO 1.024 (1.002-1.035); SQUAMOUS EPITHELIAL CELL UR AU 3 /HPF (0-6); UROBILINOGEN, URINE AUTO 0.2 mg/dL (0.0-2.0); WBC, URINE AUTO 12 /HPF (0-3)
== END ==
LOC: M LAB REF 16:19
PROVIDERS: ATTEND Physician Assistant
DX: N39.0 Urinary tract infection, site not specified (principal)

== ENCOUNTER 2019-03-25 10:14 | Emergency (ER) | payer OTHER ==
[~2019-03-25] VITALS: Ht 167.6 cm; Wt 147.0 kg
[2019-03-25 12:47] VITALS: BP 151/89
== END 2019-03-25 12:48 | disposition home or self-care (01) ==
LOC: M ED 10:14
DX: T18.128A Food in esophagus causing other injury, initial encounter (principal); Y92.9 Unspecified place or not applicable; Y93.89 Activity, other specified; F32.9 Major depressive disorder, single episode, unspecified; F41.9 Anxiety disorder, unspecified; F17.200 Nicotine dependence, unspecified, uncomplicated; Z88.0 Allergy status to penicillin; Z88.1 Allergy status to other antibiotic agents; Z91.030 Bee allergy status

== ENCOUNTER → 2019-07-09 | Outpatient (REF) | payer OTHER ==
[2019-07-09 15:09] LABS: APPEARANCE, URINE CLEAR (CLEAR); BACTERIA, URINE AUTO NEGATIVE (NEGATIVE); BILIRUBIN, URINE AUTO NEGATIVE (NEGATIVE); BLOOD, URINE BLOOD NEGATIVE (NEGATIVE); COLOR, URINE YELLOW (YELLOW); GLUCOSE, URINE (UA) AUTO NEGATIVE (NEGATIVE); KETONE, URINE AUTO NEGATIVE (NEGATIVE); LEUKOCYTE ESTERASE, URINE AUTO TRACE (NEGATIVE); MUCUS, URINE SMALL (NEGATIVE); NITRITE, URINE AUTO NEGATIVE (NEGATIVE); PROTEIN, URINE AUTO NEGATIVE (NEGATIVE); RBC, URINE AUTO 0 /HPF (0-3); SPECIFIC GRAVITY URINE AUTO 1.009 (1.002-1.035); SQUAMOUS EPITHELIAL CELL UR AU 1 /HPF (0-6); UROBILINOGEN, URINE AUTO 0.2 mg/dL (0.0-2.0); WBC, URINE AUTO 2 /HPF (0-3)
== END ==
LOC: M LAB REF 14:35
PROVIDERS: ATTEND Physician Assistant Medical
DX: N39.0 Urinary tract infection, site not specified (principal)

== ENCOUNTER → 2019-11-01 | Outpatient (REF) | payer OTHER ==
[~2019-11-01] MED LIST changes: +CYCL-707 PO; -CYCL10TA PO
== END ==
LOC: M LAB REF 11:59
PROVIDERS: ATTEND Physician Assistant
DX: R39.9 Unspecified symptoms and signs involving the genitourinary system (principal)

== ENCOUNTER → 2020-02-13 | Outpatient (REF) | payer OTHER | LOC: M LAB REF 17:43 | PROVIDERS: ATTEND Physician Assistant | DX: N39.0 Urinary tract infection, site not specified (principal) ==

== ENCOUNTER → 2020-05-22 | Outpatient (REF) | payer OTHER ==
[2020-05-22 16:56] LABS: APPEARANCE, URINE HAZY (CLEAR); BACTERIA, URINE AUTO 1+ (NEGATIVE); BILIRUBIN, URINE AUTO NEGATIVE (NEGATIVE); BLOOD, URINE BLOOD NEGATIVE (NEGATIVE); COLOR, URINE AMBER (YELLOW); GLUCOSE, URINE (UA) AUTO NEGATIVE (NEGATIVE); KETONE, URINE AUTO NEGATIVE (NEGATIVE); LEUKOCYTE ESTERASE, URINE AUTO TRACE (NEGATIVE); MUCUS, URINE LARGE (NEGATIVE); NITRITE, URINE AUTO NEGATIVE (NEGATIVE); PROTEIN, URINE AUTO 1+ mg/dL (NEGATIVE); RBC, URINE AUTO 1 /HPF (0-3); SPECIFIC GRAVITY URINE AUTO 1.027 (1.002-1.035); SQUAMOUS EPITHELIAL CELL UR AU 3 /HPF (0-6); UROBILINOGEN, URINE AUTO 0.2 mg/dL (0.0-2.0); WBC, URINE AUTO 3 /HPF (0-3)
== END ==
LOC: M LAB REF 16:28
PROVIDERS: ATTEND Physician Assistant
DX: N39.0 Urinary tract infection, site not specified (principal)

== ENCOUNTER → 2020-09-10 | Outpatient (REF) | payer OTHER ==
[2020-09-10 22:01] LABS: APPEARANCE, URINE HAZY (CLEAR); BACTERIA, URINE AUTO NEGATIVE (NEGATIVE); BILIRUBIN, URINE AUTO NEGATIVE (NEGATIVE); BLOOD, URINE BLOOD NEGATIVE (NEGATIVE); COLOR, URINE YELLOW (YELLOW); GLUCOSE, URINE (UA) AUTO NEGATIVE (NEGATIVE); KETONE, URINE AUTO NEGATIVE (NEGATIVE); LEUKOCYTE ESTERASE, URINE AUTO 3+ (NEGATIVE); MUCUS, URINE SMALL (NEGATIVE); NITRITE, URINE AUTO NEGATIVE (NEGATIVE); PROTEIN, URINE AUTO NEGATIVE (NEGATIVE); RBC, URINE AUTO 2 /HPF (0-3); SQUAMOUS EPITHELIAL CELL UR AU 3 /HPF (0-6); UROBILINOGEN, URINE AUTO 0.2 mg/dL (0.0-2.0); WBC, URINE AUTO 6 /HPF (0-3)
== END ==
LOC: M LAB 21:49
PROVIDERS: ATTEND Physician Assistant
DX: N39.0 Urinary tract infection, site not specified (principal)

== ENCOUNTER → 2020-12-05 | Outpatient (REF) | payer OTHER ==
[2020-12-05 21:23] LABS: APPEARANCE, URINE CLEAR (CLEAR); BACTERIA, URINE AUTO NEGATIVE (NEGATIVE); BILIRUBIN, URINE AUTO NEGATIVE (NEGATIVE); BLOOD, URINE BLOOD NEGATIVE (NEGATIVE); COLOR, URINE YELLOW (YELLOW); GLUCOSE, URINE (UA) AUTO NEGATIVE (NEGATIVE); KETONE, URINE AUTO NEGATIVE (NEGATIVE); LEUKOCYTE ESTERASE, URINE AUTO 2+ (NEGATIVE); MUCUS, URINE SMALL (NEGATIVE); NITRITE, URINE AUTO NEGATIVE (NEGATIVE); PROTEIN, URINE AUTO NEGATIVE (NEGATIVE); RBC, URINE AUTO 1 /HPF (0-3); SPECIFIC GRAVITY URINE AUTO 1.014 (1.002-1.035); SQUAMOUS EPITHELIAL CELL UR AU 1 /HPF (0-6); UROBILINOGEN, URINE AUTO 0.2 mg/dL (0.0-2.0); WBC, URINE AUTO 4 /HPF (0-3)
== END ==
LOC: M LAB REF 20:56
PROVIDERS: ATTEND Physician Assistant
DX: R30.0 Dysuria (principal)

== ENCOUNTER → 2021-02-07 | Outpatient (REF) | payer OTHER ==
[2021-02-07 18:16] LABS: APPEARANCE, URINE HAZY (CLEAR); BACTERIA, URINE AUTO NEGATIVE (NEGATIVE); BILIRUBIN, URINE AUTO NEGATIVE (NEGATIVE); BLOOD, URINE BLOOD NEGATIVE (NEGATIVE); COLOR, URINE YELLOW (YELLOW); GLUCOSE, URINE (UA) AUTO NEGATIVE (NEGATIVE); KETONE, URINE AUTO NEGATIVE (NEGATIVE); LEUKOCYTE ESTERASE, URINE AUTO 2+ (NEGATIVE); MUCUS, URINE SMALL (NEGATIVE); NITRITE, URINE AUTO NEGATIVE (NEGATIVE); PROTEIN, URINE AUTO NEGATIVE (NEGATIVE); RBC, URINE AUTO 1 /HPF (0-3); SPECIFIC GRAVITY URINE AUTO 1.019 (1.002-1.035); SQUAMOUS EPITHELIAL CELL UR AU 5 /HPF (0-6); UROBILINOGEN, URINE AUTO 0.2 mg/dL (0.0-2.0); WBC, URINE AUTO 11 /HPF (0-3)
== END ==
LOC: M LAB REF 17:37
PROVIDERS: ATTEND Physician Assistant Medical
DX: N39.0 Urinary tract infection, site not specified (principal)

== ENCOUNTER → 2021-04-06 | Outpatient (REF) | payer OTHER ==
[2021-04-06 11:24] LABS: APPEARANCE, URINE CLOUDY (CLEAR); BACTERIA, URINE AUTO NEGATIVE (NEGATIVE); BILIRUBIN, URINE AUTO NEGATIVE (NEGATIVE); BLOOD, URINE BLOOD NEGATIVE (NEGATIVE); COLOR, URINE YELLOW (YELLOW); GLUCOSE, URINE (UA) AUTO NEGATIVE (NEGATIVE); KETONE, URINE AUTO NEGATIVE (NEGATIVE); LEUKOCYTE ESTERASE, URINE AUTO 3+ (NEGATIVE); MUCUS, URINE SMALL (NEGATIVE); NITRITE, URINE AUTO NEGATIVE (NEGATIVE); PROTEIN, URINE AUTO 1+ mg/dL (NEGATIVE); RBC, URINE AUTO 3 /HPF (0-3); SPECIFIC GRAVITY URINE AUTO 1.024 (1.002-1.035); SQUAMOUS EPITHELIAL CELL UR AU 8 /HPF (0-6); UROBILINOGEN, URINE AUTO 0.2 mg/dL (0.0-2.0); WBC, URINE AUTO 10 /HPF (0-3)
== END ==
LOC: M LAB REF 11:08
PROVIDERS: ATTEND Physician Assistant Medical
DX: N39.0 Urinary tract infection, site not specified (principal)

== ENCOUNTER 2021-04-14 20:51 | Emergency (ER) | payer OTHER ==
[~2021-04-14] VITALS: Ht 167.6 cm; Wt 163.2 kg
[2021-04-14] MEDS ORDERED: ONDANSETRON 4 MG ORAL DISINTEGRATING TAB PO ONE (22:45)
[2021-04-14] MEDS ORDERED: ACETAMINOPHEN 325 MG TAB PO ONE (22:45)
[2021-04-14 23:18] VITALS: O2SAT 95
[2021-04-14 23:28] LABS: APPEARANCE, URINE CLOUDY (CLEAR); BACTERIA, URINE AUTO 1+ (NEGATIVE); BILIRUBIN, URINE AUTO NEGATIVE (NEGATIVE); BLOOD, URINE BLOOD NEGATIVE (NEGATIVE); COLOR, URINE AMBER (YELLOW); GLUCOSE, URINE (UA) AUTO NEGATIVE (NEGATIVE); KETONE, URINE AUTO NEGATIVE (NEGATIVE); LEUKOCYTE ESTERASE, URINE AUTO 3+ (NEGATIVE); MUCUS, URINE MODERATE (NEGATIVE); NITRITE, URINE AUTO NEGATIVE (NEGATIVE); PROTEIN, URINE AUTO 2+ mg/dL (NEGATIVE); RBC, URINE AUTO 6 /HPF (0-3); SPECIFIC GRAVITY URINE AUTO 1.028 (1.002-1.035); SQUAMOUS EPITHELIAL CELL UR AU 6 /HPF (0-6); UROBILINOGEN, URINE AUTO 0.2 mg/dL (0.0-2.0); WBC, URINE AUTO 50 /HPF (0-3)
[2021-04-14] MEDS ORDERED: CIPROFLOXACIN 500MG TABLET PO ONE (23:40)
[2021-04-14] MEDS ORDERED: CIPR-249 PO (23:49)
[2021-04-14] MEDS ORDERED: ONDA4TAB6 PO (23:49)
[2021-04-15 00:10] VITALS: BP 130/58
[2021-04-15] MEDS ORDERED: diphenhydrAMINE 50MG/ML VIAL (J1200) IV PRN (00:35)
[2021-04-15] MEDS ORDERED: methylPREDNISolone 125MG 2ML VIAL IV PRN (00:35)
[2021-04-15] MEDS ORDERED: ALBUTEROL SULFATE 2.5 MG/0.5 ML INH NEB SOLN INH PRN (00:35)
[2021-04-15] MEDS ORDERED: ALBUTEROL 90 MCG/ACT 8GM HFA INHALER INH PRN (00:35)
[2021-04-15] MEDS ORDERED: CASIRIVIMAB/IMDEVIMAB 1,200 MG in NS 250 ML IV ONE (00:35)
[2021-04-15] MEDS ORDERED: NS 1,000 ML IV SCH (00:35)
[2021-04-15] MEDS ORDERED: ACETAMINOPHEN TAB 650MG DOSE (2X325MG) PO ONE (00:35)
[2021-04-15] MEDS ORDERED: diphenhydrAMINE 25MG CAP PO ONE (00:35)
[2021-04-15] MEDS ORDERED: EPINEPHrine INJ 1 MG/ML 1ML AMP IM PRN (00:35)
== END 2021-04-15 00:15 | disposition home or self-care (01) ==
LOC: M ED 20:51
DX: U07.1 COVID-19 (principal); N39.0 Urinary tract infection, site not specified; F31.9 Bipolar disorder, unspecified; Z88.0 Allergy status to penicillin; Z88.1 Allergy status to other antibiotic agents; Z91.030 Bee allergy status
CPT/HCPCS: 80047; 81001; 96372; 96374; 96375; 99284; Q0162

== ENCOUNTER 2021-04-18 19:29 | Inpatient (IN) | payer OTHER ==
[~2021-04-18] VITALS: Ht 167.6 cm; Wt 161.3 kg
[~2021-04-18 19:29] MED LIST changes: +CIPR-249 PO; +ONDA4TAB6 PO
[2021-04-18] MEDS ORDERED: ACETAMINOPHEN TAB 650MG DOSE (2X325MG) PO PRN (22:10)
[2021-04-18] MEDS ORDERED: NS 500 ML IV ONE (22:10)
[2021-04-18] MEDS ORDERED: HOME MED LIST COMPLETE! XX SCH (22:15)
[2021-04-18] MEDS: ALBUTEROL 90 MCG/ACT 8GM HFA INHALER INH SCH ×3 (22:25→22:50)
[2021-04-18 22:43] LABS: ABG BASE EXCESS 0.7 (-2.0-2.0); ABG HCO3 22.9 MEQ/L (22.0-26.0); ABG O2 SATURATION 98.2 % (95.0-99.0); ABG PARTIAL PRESSURE CO2 29.7 mmHg (35.0-45.0); ABG PARTIAL PRESSURE O2 109.3 mmHg (75.0-100.0); ABG STANDARD HCO3 25.1 MEQ/L (22.0-26.0); ABG TOTAL CO2 23.8 MEQ/L (22.0-29.0); ABG pH (ARTERIAL) 7.504 UNITS (7.350-7.450)
[2021-04-18 22:52] LABS: BASO % 0.2 % (0.0-1.0); HEMATOCRIT 40.2 % (36.0-47.0); HEMOGLOBIN 12.8 g/dl (12.0-15.5); LYMPH # 0.9 10^3/uL (1.5-5.0); LYMPH % 23.2 % (24.0-44.0); MEAN CORPUSCULAR HEMOGLOBIN 26.7 pg (27.0-33.0); MEAN CORPUSCULAR HGB CONC 31.8 g/dl (32.0-36.5); MEAN CORPUSCULAR VOLUME 83.9 fl (80.0-96.0); MONO # 0.2 10^3/uL (0.0-0.8); MONO % 4.2 % (2.0-8.0); NEUTROPHILS # 2.9 10^3/uL (1.5-8.5); NEUTROPHILS % 71.9 % (36.0-66.0); PLATELET COUNT, AUTOMATED 181 10^3/uL (150-450); RED BLOOD COUNT 4.79 10^6/uL (4.00-5.40); WHITE BLOOD COUNT 4.1 10^3/uL (4.0-10.0)
[2021-04-18 23:03] LABS: INR 0.96; PROTHROMBIN TIME 13.2 SECONDS (12.7-14.5)
[2021-04-18 23:04] LABS: PARTIAL THROMBOPLASTIN TIME 30.4 SECONDS (25.9-37.0)
[2021-04-18 23:18] LABS: ALBUMIN 2.8 GM/DL (3.2-5.2); ALT/SGPT 49 U/L (12-78); BILIRUBIN,TOTAL 0.6 MG/DL (0.2-1.0); BLOOD UREA NITROGEN 6 MG/DL (7-18); C REACTIVE PROTEIN QUANTITATIV 6.67 MG/DL (0.00-0.30); CALCIUM LEVEL 7.6 MG/DL (8.5-10.1); CARBON DIOXIDE LEVEL 28 MEQ/L (21-32); CHLORIDE LEVEL 105 MEQ/L (98-107); CK-MB VALUE MASS < 1.0 NG/ML (<3.6); CPK CREATINE PHOSPHOKINASE 274 U/L (26-192); CREATININE FOR GFR 1.17 MG/DL (0.55-1.30); GLOMERULAR FILTRATION RATE 54.3 (>58); GLUCOSE, FASTING 101 MG/DL (70-100); LDH LACTATE DEHYDROGENASE 358 U/L (84-246); MB/CK RELATIVE INDEX 0.36 (< OR =4); POTASSIUM SERUM 3.5 MEQ/L (3.5-5.1); SODIUM LEVEL 139 MEQ/L (136-145); TOTAL PROTEIN 6.8 GM/DL (6.4-8.2); TROPONIN I < 0.02 NG/ML (< 0.10)
[2021-04-18 23:20] LABS: HCG, SERUM QUALITATIVE NEGATIVE (NEGATIVE)
[2021-04-19] MEDS ORDERED: SODIUM CHLORIDE 0.9% 1000ML IV SCH (01:00)
[2021-04-19] MEDS ORDERED: REMDESIVIR 200 MG in NS 250 ML IV ONE ×6 (01:10→14:00)
--- NOTE | 2021-04-19 01:12 | HPEPDOC ---
[facility] Medical History & Physical Date of Admission Apr 19, 2021 Date of Service: Apr 19, 2021 Other Provider Criss Bernal [facility] Attending Physician: ROBBIE CABRERA MD History and Physical TIME OF SERVICE: 1255AM CHIEF COMPLAINT: shortness of breath HISTORY OF PRESENT ILLNESS: , a 41 yr old F, has not received COVID vaccines, and was diagnosed with COVID at an outside facility on Apr 11. On Apr 15 she was evaluated by our service in the ER and plans were in place for her to return for MABs in a few days, but she returned today with c/o worsening shortness of breath, cough productive of clear sputum, chest pain when she coughs, and abdominal pain that is associated with watery diarrhea. She denies vomiting, losing her sense of taste or having any rashes. Per d/w MARY Gonzalez the patients O2 sats dropped to 86% with exertion REVIEW OF SYSTEMS: 10-point review of systems negative except as listed in HPI PAST MEDICAL/ SURGICAL HISTORY: Essential HTN (has been too afraid to visit PCPs office for med refill bc of pandemic), class 3 obesity, migraines, a nxiety/depression, , appendectomy FAMILY HISTORY: she denies having a family hx of HTN or DM SOCIAL HISTORY: She denies smoke ALLERGIES: Please see below. HOME MEDICATIONS: Please see below. PHYSICAL EXAMINATION: Vital Signs Date Time Temp Pulse Resp B/P (MAP) Pulse Ox O2 Delivery O2 Flow Rate FiO2 04/18/21 19:32 97.8 100 32 135/82 (99) 91 Room Air 04/18/21 22:49 2.0 GENERAL APPEARANCE: well-nourished and developed/ appears anxious and a bit teay HEENT: EOMI / NC in place /mask covering lower face CARDIOVASCULAR: RRR/NMRG LUNGS: tachycardic / NMRG ABDOMEN: contour convex / soft & slightly tender palpation MUSCULOSKELETAL: NCAT / CARIN x 4 extremities INTEGUMENT: earl-orbital dermatitis / not flushed or diaphoretic NEUROLOGICAL: CN 2-12 grossly intact / speech not dysarthric PSYCHIATRIC: A&O / able to understand and follow all commands LABORATORY DATA: IMAGING: Chest xray final report pending.based on personal read she appears to have bilateral hazy infiltrates MICROBIOLOGY: COVID 19 + on Apr 11 2021 ASSESSMENT: is a 41 yr old w HTN, obesity, migraines, & anxiety/depression who will be admitted for hypoxemia 2/2 COVID 19. PLAN: 1 SIRS Likely reactive 2/2 COVID 19 She has tachycardia and tachypnea but doesnt appear toxic and doesnt have lactic acidosis Plan: admit to medical floor / monitor vitals / f/u blood cx, prolactin and final chest xray read 2 Hypoxemia 2/2 COVID-19 Plan: admit to medical floor / continuous pulse ox / supplemental O2 (target O2 sats between 92-95%) / contact & air borne precautions / awake proning / she is out of the window for Remdesivir / IV dexamethasone and albuterol PRN 3 Essential HTN Plan: amlodipine 4 Class 3 obesity Complicates care Plan: f/u A1C DVT px w medium dose Lovenox w ASA per COVID order set Dispo: home after at least 2 midnights stay Home Medications No Active Prescriptions or Reported Meds Allergies Coded Allergies: bee venom protein (honey bee) (Verified Allergy, Severe, swelling, 04/18/21) Penicillins (Verified Allergy, Intermediate, 04/18/21) erythromycin base (Verified Allergy, Intermediate, 04/18/21) A-FIB/CHADSVASC A-FIB History Current/History of A-Fib/PAF?: No Current PO Anticoag Therapy: No ROBBIE CABRERA MD Apr 19, 2021 01:12
[2021-04-19] MEDS ORDERED: SODIUM CHLORIDE 0.9% INJ 10 ML SYR IV ONE ×4 (03:10→14:00)
[2021-04-19 03:15] VITALS: BP 152/88
--- NOTE | 2021-04-19 03:17 | REPVR ---
PROCEDURE INFORMATION: Exam: XR Chest Exam date and time: 04/18/2021 12:26 AM Age: 41 years old Clinical indication: Other: Covid workup; Additional info: Coronavirus workup TECHNIQUE: Imaging protocol: XR of the chest. Views: 1 view. COMPARISON: CR PORTABLE CHEST X-RAY 09/20/2018 7:10 PM FINDINGS: LUNGS and PLEURAL SPACE: Lung volumes are low. There are elevated, ill-defined, mildly confluent, scattered reticular and ground-glass pulmonary opacities, which may be secondary to atelectasis and or infiltrate/pneumonitis. For further characterization, consider chest CT. Follow-up is advised within a few weeks, to confirm resolution. Trace amounts of pleural fluid cannot be excluded. No pneumothorax is seen. MEDIASTINUM: There is no mediastinal shift or widening. CARDIAC SILHOUETTE: Cardiothoracic ratio is within normal limits for technique. BONY THORAX: No acute findings are seen. IMPRESSION: Ill-defined pulmonary opacities bilaterally as discussed above. Electronically signed by: Moe Buenrostro On 04/19/2021 03:16:53 AM
[2021-04-19 03:41] LABS: C REACTIVE PROTEIN QUANTITATIV 7.48 MG/DL (0.00-0.30)
[2021-04-19] MEDS: ENOXAPARIN 100MG/1ML SYRINGE (J1650 PER 10MG) SC SCH ×2 (06:06→18:46)
[2021-04-19 08:31] LABS: BASO % 0.2 % (0.0-1.0); HEMATOCRIT 39.3 % (36.0-47.0); HEMOGLOBIN 12.3 g/dl (12.0-15.5); LYMPH # 0.9 10^3/uL (1.5-5.0); MEAN CORPUSCULAR HGB CONC 31.3 g/dl (32.0-36.5); MEAN CORPUSCULAR VOLUME 83.1 fl (80.0-96.0); MONO # 0.2 10^3/uL (0.0-0.8); MONO % 3.5 % (2.0-8.0); NEUTROPHILS # 3.1 10^3/uL (1.5-8.5); NEUTROPHILS % 73.6 % (36.0-66.0); PLATELET COUNT, AUTOMATED 184 10^3/uL (150-450); RED BLOOD COUNT 4.73 10^6/uL (4.00-5.40); WHITE BLOOD COUNT 4.2 10^3/uL (4.0-10.0)
[2021-04-19 08:55] LABS: ALBUMIN 2.7 GM/DL (3.2-5.2); ALT/SGPT 44 U/L (12-78); BILIRUBIN,TOTAL 0.6 MG/DL (0.2-1.0); BLOOD UREA NITROGEN 6 MG/DL (7-18); CALCIUM LEVEL 7.8 MG/DL (8.5-10.1); CARBON DIOXIDE LEVEL 25 MEQ/L (21-32); CHLORIDE LEVEL 108 MEQ/L (98-107); CREATININE FOR GFR 0.99 MG/DL (0.55-1.30); GLOMERULAR FILTRATION RATE > 60.0 (>58); GLUCOSE, FASTING 99 MG/DL (70-100); POTASSIUM SERUM 3.4 MEQ/L (3.5-5.1); SODIUM LEVEL 141 MEQ/L (136-145); TOTAL PROTEIN 6.6 GM/DL (6.4-8.2)
[2021-04-19] MEDS ORDERED: dexameTHASONE 4 MG/ML 1ML VIAL (J1100 PER 1MG) IV SCH (09:00)
--- NOTE | 2021-04-19 10:35 | IPNPDOC ---
Text Note Date of Service The patient was seen on 04/19/21. NOTE Subjective: Patient is a 43-year-old female with a PMHx of HTN, Obesity, Migraines, Anxiety / Depression, and recent diagnosis of COVID19 (04/11/21) who presented to the ER with worsening shortness of breath. Patient was evaluated by hospital service on 04/15; with plans to return for monoclonal antibody infusion. Patient was admitted to the hospitalist service for further evaluation and treatment. Patient was seen and examined at the bedside. Patient denies any nausea, vomiting, palpitations, abdominal pain, constipation, reports some loose bowel movements. Reports some shortness of breath and mostly a nonproductive cough. Objective: Vitals (See below) General: Lying in bed, appears comfortable, AAOx3 HEENT: NC, AT CVS: +S1S2 Lungs: Fair air entry b/l, no significant wheezing, crackles or rhonchi Abdomen: Soft, ND, NT, Obese Extremities: Lower extremities are without any significant edema Imaging: CXR 04/18: Ill-defined pulmonary opacities bilaterally as discussed above. Assessment and plan: Hypoxic respiratory failure - likely 2/2 COVID19 pneumonia - Presented to ER with worsening shortness of breath; still reports some shortness of breath with a mostly nonproductive cough - COVID19 positive on 04/11/2021 - Patient is unvaccinated; reports that she was afraid of getting COVID19 from the vaccine - advised her that that was incorrect - She remains hemodynamically stable and afebrile - Imaging noted above - Will continue to follow inflammatory markers - c/w Dexamethasone and Remdesivir (Day #2) - Will start Incentive spirometry / Acapella / Mucinex / Encourage prone positioning HTN - BP well controlled - c/w Amlodipine Obesity - BMI of 58.2 - Complicating medical care DVT prophylaxis - c/w weight-based Lovenox prophylactic dosing Disposition: - Awaiting clinical improvement Yannick LEPE I+O Yannick LEPE I+O Laboratory Tests 04/18/21 22:06 04/18/21 22:19 04/19/21 07:55 Vital Signs Date Time Temp Pulse Resp B/P (MAP) Pulse Ox O2 Delivery O2 Flow Rate FiO2 04/19/21 03:15 152/88 (109) 04/19/21 03:06 2.0 04/18/21 22:49 Nasal Cannula 04/18/21 22:49 104 20 92 04/18/21 19:32 97.8 I&O- Last 24 Hours up to 6 AM 04/19/21 06:00 Intake Total 1400 ml Balance 1400 ml MARIAM STYLES MD Apr 19, 2021 10:35
[2021-04-19] MEDS ORDERED: POTASSIUM CHLORIDE 10MEQ SR TABLET PO ONE (11:00)
[2021-04-19] MEDS: guaiFENesin ER 600 MG TAB PO SCH ×2 (11:16→21:58)
[2021-04-19] MEDS: dexameTHASONE 4 MG/ML 1ML VIAL (J1100 PER 1MG) IV SCH (11:16)
[2021-04-19] MEDS: ASPIRIN 81MG ENTERIC TABLET PO SCH (11:16)
[2021-04-19 11:26] VITALS: BP 127/75
[2021-04-19 14:00] VITALS: BP 133/85
[2021-04-19] MEDS ORDERED: ACETAMINOPHEN TAB 650MG DOSE (2X325MG) PO PRN (14:25)
--- NOTE | 2021-04-19 19:14 | ECGEPIP ---
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
[2021-04-19 20:10] VITALS: BP 120/77
[2021-04-19 22:41] VITALS: BP 127/78
[2021-04-19] MEDS ORDERED: COMBIVENT RESPIMAT 100-20MCG INHALER 4GM INH PRN (22:45)
[2021-04-19 23:24] LABS: ABG BASE EXCESS 0.7 (-2.0-2.0); ABG HCO3 24.8 MEQ/L (22.0-26.0); ABG O2 SATURATION 93.1 % (95.0-99.0); ABG PARTIAL PRESSURE CO2 38.1 mmHg (35.0-45.0); ABG PARTIAL PRESSURE O2 66.3 mmHg (75.0-100.0); ABG pH (ARTERIAL) 7.432 UNITS (7.350-7.450)
[2021-04-19 23:38] VITALS: BP 155/91
[2021-04-20] VITALS (10 sets, daily range): BP systolic 139–165; BP diastolic 69–96; O2SAT 89–97
[2021-04-20] MEDS ORDERED: REMDESIVIR 100 MG in NS 250 ML IV SCH ×5 (01:10→06:00)
[2021-04-20] MEDS: ENOXAPARIN 100MG/1ML SYRINGE (J1650 PER 10MG) SC SCH ×2 (06:44→18:23)
[2021-04-20] MEDS ORDERED: SODIUM CHLORIDE 0.9% INJ 10 ML SYR IV SCH (07:00)
--- NOTE | 2021-04-20 08:44 | IPNPDOC ---
Text Note Date of Service The patient was seen on 04/20/21. NOTE Subjective: Patient is a 43-year-old female with a PMHx of HTN, Obesity, Migraines, Anxiety / Depression, and recent diagnosis of COVID19 (04/11/21) who presented to the ER with worsening shortness of breath. Patient was evaluated by hospital service on 04/15; with plans to return for monoclonal antibody infusion. Patient was admitted to the hospitalist service for further evaluation and treatment. Overnight, patient's oxygen saturations deteriorated requiring Vapotherm therapy Patient was seen and examined at the bedside. Patient denies any chest pain or palpitations. Reports her breathing is doing relatively fine while on Vapotherm reports a nonproductive cough. Denies any nausea, vomiting, abdominal pain, unsure if she has any diarrhea. Denies any urinary discomfort. Objective: Vitals (See patient is laying in bed on her side, appears comfortable, not in any acute distress. She is awake, alert, oriented 3 HEENT: Atraumatic and normocephalic CVS: +S1S2 Lungs: Diminished lung sounds bilaterally without any auscultated. Evidence crackles, wheezing or rhonchi Abdomen: Soft but obese, nondistended and nontender Extremities: No edema of lower extremities Imaging: CXR 04/18: Ill-defined pulmonary opacities bilaterally as discussed above. Assessment and plan: Acute hypoxic respiratory failure - likely 2/2 COVID19 pneumonia - Patient is unvaccinated; reports that she was afraid of getting COVID19 from the vaccine - advised her that that was incorrect - Overnight patient was reporting increased shortness of breath and had worseni ng saturations - Patient has been transitioned to Vapotherm therapy overnight; advised patient that she may require CPAP if she continues to decline - Hemodynamically stable and afebrile - COVID19 positive on 04/11/2021 - Imaging noted above - Will trend inflammatory markers - c/w Dexamethasone (Day #3) and Remdesivir (Day #2) - c/w Incentive spirometry / Acapella / Mucinex / Encourage prone positioning HTN - BP slightly elevated this morning - c/w Amlodipine Obesity - BMI of 58.2 - Complicating medical care DVT prophylaxis - c/w weight-based Lovenox prophylactic dosing Disposition: - Awaiting clinical improvement VS,Yannick, I+O VS, Fishbone, I+O Vital Signs Date Time Temp Pulse Resp B/P (MAP) Pulse Ox O2 Delivery O2 Flow Rate FiO2 04/20/21 06:00 93 HVNI-Vapotherm 30.0 100 04/20/21 04:00 98.7 80 26 151/91 (111) I&O- Last 24 Hours up to 6 AM 04/20/21 06:00 Intake Total 960 ml Output Total 350 ml Balance 610 ml MARIAM STYLES MD Apr 20, 2021 08:44
[2021-04-20] MEDS: guaiFENesin ER 600 MG TAB PO SCH ×2 (09:15→19:35)
[2021-04-20] MEDS: dexameTHASONE 4 MG/ML 1ML VIAL (J1100 PER 1MG) IV SCH (09:15)
[2021-04-20] MEDS: ASPIRIN 81MG ENTERIC TABLET PO SCH (09:15)
[2021-04-20 10:22] LABS: HEMATOCRIT 39.7 % (36.0-47.0); HEMOGLOBIN 12.4 g/dl (12.0-15.5); LYMPH # 0.6 10^3/uL (1.5-5.0); LYMPH % 9.3 % (24.0-44.0); MEAN CORPUSCULAR HEMOGLOBIN 25.9 pg (27.0-33.0); MEAN CORPUSCULAR HGB CONC 31.2 g/dl (32.0-36.5); MEAN CORPUSCULAR VOLUME 82.9 fl (80.0-96.0); MONO # 0.2 10^3/uL (0.0-0.8); MONO % 2.5 % (2.0-8.0); NEUTROPHILS # 5.8 10^3/uL (1.5-8.5); NEUTROPHILS % 87.6 % (36.0-66.0); PLATELET COUNT, AUTOMATED 233 10^3/uL (150-450); RED BLOOD COUNT 4.79 10^6/uL (4.00-5.40); WHITE BLOOD COUNT 6.7 10^3/uL (4.0-10.0)
[2021-04-20 11:07] LABS: ALBUMIN 2.7 GM/DL (3.2-5.2); ALT/SGPT 38 U/L (12-78); BILIRUBIN,TOTAL 0.5 MG/DL (0.2-1.0); BLOOD UREA NITROGEN 8 MG/DL (7-18); C REACTIVE PROTEIN QUANTITATIV 9.94 MG/DL (0.00-0.30); CALCIUM LEVEL 7.7 MG/DL (8.5-10.1); CARBON DIOXIDE LEVEL 25 MEQ/L (21-32); CHLORIDE LEVEL 107 MEQ/L (98-107); CREATININE FOR GFR 0.86 MG/DL (0.55-1.30); FERRITIN 64 NG/ML (8-252); GLOMERULAR FILTRATION RATE > 60.0 (>58); GLUCOSE, FASTING 95 MG/DL (70-100); LDH LACTATE DEHYDROGENASE 345 U/L (84-246); MAGNESIUM LEVEL 2.2 MG/DL (1.8-2.4); POTASSIUM SERUM 3.6 MEQ/L (3.5-5.1); SODIUM LEVEL 140 MEQ/L (136-145); TOTAL PROTEIN 6.9 GM/DL (6.4-8.2)
[2021-04-20] MEDS: REMDESIVIR 100 MG in NS 250 ML IV SCH (13:39)
[2021-04-20] MEDS: SODIUM CHLORIDE 0.9% INJ 10 ML SYR IV SCH (13:40)
--- NOTE | 2021-04-20 15:24 | REP ---
INDICATION: SOB / Hypoxia COMPARISON: 04/18/2021 TECHNIQUE: Portable AP view of the chest FINDINGS: Examination is limited by underpenetration and poor inspiratory effort. Diffuse bilateral opacities and suspected moderate pleural effusions again noted and unchanged. No pneumothorax. IMPRESSION: Moderate bilateral opacities and pleural effusions unchanged. <Electronically signed by Erwin Encinas > 04/20/21 0717
[2021-04-20 16:50] LABS: ABG BASE EXCESS -0.7 (-2.0-2.0); ABG HCO3 22.3 MEQ/L (22.0-26.0); ABG O2 SATURATION 95.8 % (95.0-99.0); ABG PARTIAL PRESSURE CO2 32.2 mmHg (35.0-45.0); ABG STANDARD HCO3 23.8 MEQ/L (22.0-26.0); ABG TOTAL CO2 23.3 MEQ/L (22.0-29.0); ABG pH (ARTERIAL) 7.459 UNITS (7.350-7.450)
[2021-04-20] MEDS: BARICITINIB 2MG TABLET (OLUMIANT) FOR EUA PO SCH (18:24)
[2021-04-21] VITALS (12 sets, daily range): BP systolic 140–163; BP diastolic 64–99; O2SAT 92–100
[2021-04-21 03:58] LABS: HEMATOCRIT 38.5 % (36.0-47.0); LYMPH # 0.8 10^3/uL (1.5-5.0); LYMPH % 15.6 % (24.0-44.0); MEAN CORPUSCULAR HGB CONC 31.2 g/dl (32.0-36.5); MEAN CORPUSCULAR VOLUME 83.3 fl (80.0-96.0); MONO # 0.3 10^3/uL (0.0-0.8); MONO % 5.7 % (2.0-8.0); NEUTROPHILS # 3.9 10^3/uL (1.5-8.5); NEUTROPHILS % 78.3 % (36.0-66.0); PLATELET COUNT, AUTOMATED 257 10^3/uL (150-450); RED BLOOD COUNT 4.62 10^6/uL (4.00-5.40); WHITE BLOOD COUNT 4.9 10^3/uL (4.0-10.0)
[2021-04-21 04:09] LABS: INR 1.04
[2021-04-21 04:22] LABS: ALBUMIN 2.3 GM/DL (3.2-5.2); ALT/SGPT 33 U/L (12-78); BILIRUBIN,DIRECT 0.2 MG/DL (0.0-0.2); BILIRUBIN,TOTAL 0.5 MG/DL (0.2-1.0); C REACTIVE PROTEIN QUANTITATIV 7.98 MG/DL (0.00-0.30); CPK CREATINE PHOSPHOKINASE 112 U/L (26-192); FERRITIN 61 NG/ML (8-252); LDH LACTATE DEHYDROGENASE 319 U/L (84-246); MAGNESIUM LEVEL 2.3 MG/DL (1.8-2.4); NT-PRO BNP 108 PG/ML (<125); TOTAL PROTEIN 6.9 GM/DL (6.4-8.2); TROPONIN I < 0.02 NG/ML (< 0.10)
[2021-04-21] MEDS: ENOXAPARIN 100MG/1ML SYRINGE (J1650 PER 10MG) SC SCH ×2 (05:05→17:12)
[2021-04-21] MEDS: ASPIRIN 81MG ENTERIC TABLET PO SCH (08:30)
[2021-04-21] MEDS: BARICITINIB 2MG TABLET (OLUMIANT) FOR EUA PO SCH (08:30)
[2021-04-21] MEDS: guaiFENesin ER 600 MG TAB PO SCH ×2 (08:30→21:28)
[2021-04-21] MEDS: dexameTHASONE 4 MG/ML 1ML VIAL (J1100 PER 1MG) IV SCH (08:31)
[2021-04-21] MEDS: REMDESIVIR 100 MG in NS 250 ML IV SCH (13:21)
[2021-04-21] MEDS: SODIUM CHLORIDE 0.9% INJ 10 ML SYR IV SCH (13:22)
--- NOTE | 2021-04-21 14:17 | IPNPDOC ---
Date Seen The patient was seen on 04/21/21. Progress Note SUBJECTIVE: seen at bedside. Difficulty tolerating CPAP overnight. Not proning. Much more comfortable on vapotherm this morning. Requires 40LPM at 100%. Encouraged to prone while awake. Denies CP, palpitations, fevers, cough. OBJECTIVE PHYSICAL EXAMINATION: VITAL SIGNS: please see below General: NAD, comfortable HEENT: PERRLA, EOMI, sclerae clear Neck: supple, normal ROM, no JVD Respiratory: fair inspiratory effort, mild rhonchi in bilateral lung bases, no wheeze or crackles. CVS: RRR, normal S1, S2, no murmurs Abdo: soft, no masses, no hepatosplenomegaly, BS+, no rebound tenderness Extremities: no edema, pulses 2+ MSK: no joint deformities, normal ROM Neuro: no focal neuro deficits, moving all 4 extremities, CN2-12 intact. Strength 5/5 in all 4 extremities. No nystagmus. Psych: calm, cooperative, AAO x 3 LABORATORY DATA, IMAGING STUDIES, MICROBIOLOGY: Please see below. DVT prophylaxis ordered?: weight based lovenox ppx. ASSESSMENT AND PLAN: 43-year-old female with a PMHx of HTN, Obesity, Migraines, Anxiety / Depression, and recent diagnosis of COVID19 (04/11/21) who presented to the ER with worsening shortness of breath. Patient was evaluated by hospital service on 04/15; with plans to return for monoclonal antibody infusion. Patient was admitted to the hospitalist service for further evaluation and treatment. Overnight, patient's oxygen saturations deteriorated requiring Vapotherm therapy PROBLEMS: Acute hypoxic respiratory failure - likely 2/2 COVID19 pneumonia - Patient is unvaccinated; reports that she was afraid of getting COVID19 from the vaccine - advised her that that was incorrect - Overnight patient was reporting increased shortness of breath and had worsening saturations - Transfered to ICU for CPAP. Difficulty tolerating. Trial vapotherm. - Hemodynamically stable and afebrile - COVID19 positive on 04/11/2021 - Imaging noted above - Will trend inflammatory markers - c/w Dexamethasone (Day #4) and Remdesivir (Day #3) - c/w Incentive spirometry / Acapella / Mucinex / Encourage prone positioning HTN - BP slightly elevated this morning - c/w Amlodipine Obesity - BMI of 58.2 - Complicating medical care DVT prophylaxis - c/w weight-based Lovenox prophylactic dosing Disposition: - Awaiting clinical improvement VS, I&O, 24H, [place] Vital Signs/I&O Vital Signs Date Time Temp Pulse Resp B/P (MAP) Pulse Ox O2 Delivery O2 Flow Rate FiO2 04/21/21 09:15 72 91 HVNI-Vapotherm 40.0 100 04/21/21 08:29 96.8 28 159/98 (118) I&O- Last 24 Hours up to 6 AM 04/21/21 06:00 Intake Total 2090 ml Output Total 375 ml Balance 1715 ml Laboratory Data 24H LABS Laboratory Tests 2 04/20/21 16:30: Blood Gas Bicarbonate Standard 23.8, Arterial Blood pH 7.459H, Arterial Blood Partial Pressure CO2 32.2L, Arterial Blood Partial Pressure O2 78.0, Arterial Blood Total CO2 23.3, Arterial Blood HCO3 22.3, Arterial Blood Base Excess -0.7, Arterial Blood Oxygen Saturation 95.8 04/21/21 02:21: Bedside Glucose (Misc Panel) 120H 04/21/21 03:44: Immature Granulocyte % (Auto) 0.4, Neutrophils (%) (Auto) 78.3H, Lymphocytes (%) (Auto) 15.6L, Monocytes (%) (Auto) 5.7, Eosinophils (%) (Auto) 0.0, Basophils (%) (Auto) 0.0, Neutrophils # (Auto) 3.9, Lymphocytes # (Auto) 0.8L, Monocytes # (Auto) 0.3, Eosinophils # (Auto) 0.0, Basophils # (Auto) 0.0, Nucleated Red Blood Cells % (auto) 0.0, Prothrombin Time 14.0, Prothromb Time International Ratio 1.04, Activated Partial Thromboplast Time 37.0, Fibrinogen 531H, Magnesium Level 2.3, Ferritin 61, Total Bilirubin 0.5, Direct Bilirubin 0.2, Aspartate Amino Transf (AST/SGOT) 37, Alanine Aminotransferase (ALT/SGPT) 33, Alkaline Phosphatase 68, Lactate Dehydrogenase 319H, Total Creatine Kinase 112, Troponin I < 0.02, C-Reactive Protein, Quantitative 7.98H, XL-Ibd-Z-Type Natriuretic Peptide 108, Total Protein 6.9, Albumin 2.3L, Albumin/Globulin Ratio 0.5L, Procalcitonin <0.05 04/21/21 06:21: Bedside Glucose (Misc Panel) 105 CBC/BMP Laboratory Tests 04/21/21 03:44 Microbiology Microbiology 04/19/21 Blood Culture - Preliminary, Resulted No Growth after 48 hours. All Specime... 04/19/21 Blood Culture - Preliminary, Resulted No Growth after 48 hours. All Specime... GENOVEVA MATTA MD Apr 21, 2021 14:17
[2021-04-22] VITALS (9 sets, daily range): BP systolic 126–176; BP diastolic 61–91; O2SAT 91–96
[2021-04-22 04:28] LABS: BASO % 0.2 % (0.0-1.0); HEMATOCRIT 37.6 % (36.0-47.0); HEMOGLOBIN 11.9 g/dl (12.0-15.5); LYMPH # 0.8 10^3/uL (1.5-5.0); LYMPH % 13.3 % (24.0-44.0); MEAN CORPUSCULAR HEMOGLOBIN 26.3 pg (27.0-33.0); MEAN CORPUSCULAR HGB CONC 31.6 g/dl (32.0-36.5); MEAN CORPUSCULAR VOLUME 83.2 fl (80.0-96.0); MONO # 0.4 10^3/uL (0.0-0.8); MONO % 5.8 % (2.0-8.0); NEUTROPHILS # 4.8 10^3/uL (1.5-8.5); NEUTROPHILS % 80.2 % (36.0-66.0); PLATELET COUNT, AUTOMATED 273 10^3/uL (150-450); RED BLOOD COUNT 4.52 10^6/uL (4.00-5.40)
[2021-04-22 05:01] LABS: ALBUMIN 2.2 GM/DL (3.2-5.2); ALT/SGPT 29 U/L (12-78); BILIRUBIN,TOTAL 0.5 MG/DL (0.2-1.0); BLOOD UREA NITROGEN 14 MG/DL (7-18); CALCIUM LEVEL 7.9 MG/DL (8.5-10.1); CARBON DIOXIDE LEVEL 30 MEQ/L (21-32); CHLORIDE LEVEL 108 MEQ/L (98-107); CREATININE FOR GFR 0.65 MG/DL (0.55-1.30); GLOMERULAR FILTRATION RATE > 60.0 (>58); GLUCOSE, FASTING 96 MG/DL (70-100); MAGNESIUM LEVEL 2.2 MG/DL (1.8-2.4); SODIUM LEVEL 144 MEQ/L (136-145)
[2021-04-22] MEDS: ENOXAPARIN 100MG/1ML SYRINGE (J1650 PER 10MG) SC SCH ×2 (06:10→17:55)
[2021-04-22] MEDS: ASPIRIN 81MG ENTERIC TABLET PO SCH (08:47)
[2021-04-22] MEDS: dexameTHASONE 4 MG/ML 1ML VIAL (J1100 PER 1MG) IV SCH (08:47)
[2021-04-22] MEDS: guaiFENesin ER 600 MG TAB PO SCH ×2 (08:47→20:58)
[2021-04-22] MEDS: BARICITINIB 2MG TABLET (OLUMIANT) FOR EUA PO SCH (08:48)
--- NOTE | 2021-04-22 12:42 | IPNPDOC ---
Date Seen The patient was seen on 04/22/21. Progress Note SUBJECTIVE: seen at bedside. Difficulty tolerating CPAP overnight. Unable to fully prone. Has been tolerating vapotherm at 40 LPM 75% FiO2. Encouraged to continue to lie on side if unable to prone. Denies CP, palpitations, fevers, cough. OBJECTIVE PHYSICAL EXAMINATION: VITAL SIGNS: please see below General: NAD, comfortable HEENT: PERRLA, EOMI, sclerae clear Neck: supple, normal ROM, no JVD Respiratory: fair inspiratory effort, mild rhonchi in bilateral lung bases, no wheeze or crackles. CVS: RRR, normal S1, S2, no murmurs Abdo: soft, no masses, no hepatosplenomegaly, BS+, no rebound tenderness Extremities: no edema, pulses 2+ MSK: no joint deformities, normal ROM Neuro: no focal neuro deficits, moving all 4 extremities, CN2-12 intact. Strength 5/5 in all 4 extremities. No nystagmus. Psych: calm, cooperative, AAO x 3 LABORATORY DATA, IMAGING STUDIES, MICROBIOLOGY: Please see below. DVT prophylaxis ordered?: weight based lovenox ppx. ASSESSMENT AND PLAN: 43-year-old female with a PMHx of HTN, Obesity, Migraines, Anxiety / Depression, and recent diagnosis of COVID19 (04/11/21) who presented to the ER with worsening shortness of breath. Patient was evaluated by hospital service on 04/15; with plans to return for monoclonal antibody infusion. Patient was admitted to the hospitalist service for further evaluation and treatment. Overnight, patient's oxygen saturations deteriorated requiring Vapotherm therapy PROBLEMS: Acute hypoxic respiratory failure - due to COVID19 pneumonia - patient unvaccinated. Was afraid to contract covid from vaccine itself. - Using CPAP at night, trouble tolerating. Unable to fully prone. Lying on side. - vapother 40 LPM at 75%. - Hemodynamically stable and afebrile - COVID19 positive on 04/11/2021 - Imaging noted above - Will trend inflammatory markers - c/w Dexamethasone (Day #5) and Remdesivir (Day #4) - Barcitinib (Day #3) - c/w Incentive spirometry / Acapella / Mucinex / Encourage prone positioning HTN - BP elevated. - start amlodipine 5 mg daily. Obesity - BMI of 58.2 - Complicating medical care DVT prophylaxis - c/w weight-based Lovenox prophylactic dosing Dispo: - Awaiting clinical improvement, admission to span > 48 hours. VS, I&O, 24H, Fishbone Vital Signs/I&O Vital Signs Date Time Temp Pulse Resp B/P (MAP) Pulse Ox O2 Delivery O2 Flow Rate FiO2 04/22/21 10:00 57 99 HVNI-Vapotherm 40.0 100 04/22/21 08:46 151/89 (109) 04/22/21 06:00 97.2 24 I&O- Last 24 Hours up to 6 AM 04/22/21 05:59 Intake Total 1290 ml Output Total 485 ml Balance 805 ml Laboratory Data 24H LABS Laboratory Tests 2 04/21/21 18:36: Bedside Glucose (Misc Panel) 142H 04/22/21 02:29: Bedside Glucose (Misc Panel) 100 04/22/21 04:11: Immature Granulocyte % (Auto) 0.5, Neutrophils (%) (Auto) 80.2H, Lymphocytes (%) (Auto) 13.3L, Monocytes (%) (Auto) 5.8, Eosinophils (%) (Auto) 0.0, Basophils (%) (Auto) 0.2, Neutrophils # (Auto) 4.8, Lymphocytes # (Auto) 0.8L, Monocytes # (Auto) 0.4, Eosinophils # (Auto) 0.0, Basophils # (Auto) 0.0, Nucleated Red Blood Cells % (auto) 0.0, Anion Gap 6L, Glomerular Filtration Rate > 60.0, Calcium Level 7.9L, Magnesium Level 2.2, Total Bilirubin 0.5, Aspartate Amino Transf (AST/SGOT) 31, Alanine Aminotransferase (ALT/SGPT) 29, Alkaline Phosphatase 65, Total Protein 6.0L, Albumin 2.2L, Albumin/Globulin Ratio 0.6L 04/22/21 06:08: Bedside Glucose (Misc Panel) 100 04/22/21 11:41: Bedside Glucose (Misc Panel) 106H CBC/BMP Laboratory Tests 04/22/21 04:11 Microbiology Microbiology 04/19/21 Blood Culture - Preliminary, Resulted No Growth after 72 hours. All specime... 04/19/21 Blood Culture - Preliminary, Resulted No Growth after 72 hours. All specime... POLINKEVYCH,GENOVEVA MD Apr 22, 2021 12:42
[2021-04-22] MEDS: REMDESIVIR 100 MG in NS 250 ML IV SCH (14:13)
[2021-04-22] MEDS: amLODIPine 5 MG TAB PO SCH (14:14)
[2021-04-22] MEDS: SODIUM CHLORIDE 0.9% INJ 10 ML SYR IV SCH (14:14)
[2021-04-23] VITALS (7 sets, daily range): BP systolic 143–165; BP diastolic 72–99; O2SAT 90–100
[2021-04-23 04:33] LABS: HEMOGLOBIN 11.8 g/dl (12.0-15.5); LYMPH # 0.8 10^3/uL (1.5-5.0); LYMPH % 15.5 % (24.0-44.0); MEAN CORPUSCULAR HEMOGLOBIN 25.8 pg (27.0-33.0); MEAN CORPUSCULAR HGB CONC 31.1 g/dl (32.0-36.5); MEAN CORPUSCULAR VOLUME 83.2 fl (80.0-96.0); MONO # 0.4 10^3/uL (0.0-0.8); MONO % 7.4 % (2.0-8.0); NEUTROPHILS # 4.1 10^3/uL (1.5-8.5); PLATELET COUNT, AUTOMATED 318 10^3/uL (150-450); RED BLOOD COUNT 4.57 10^6/uL (4.00-5.40); WHITE BLOOD COUNT 5.4 10^3/uL (4.0-10.0)
[2021-04-23 04:43] LABS: INR 1.03; PROTHROMBIN TIME 13.9 SECONDS (12.7-14.5)
[2021-04-23 04:44] LABS: PARTIAL THROMBOPLASTIN TIME 32.9 SECONDS (25.9-37.0)
[2021-04-23 05:17] LABS: ALBUMIN 2.3 GM/DL (3.2-5.2); ALT/SGPT 47 U/L (12-78); BILIRUBIN,DIRECT 0.2 MG/DL (0.0-0.2); BILIRUBIN,TOTAL 0.5 MG/DL (0.2-1.0); BLOOD UREA NITROGEN 15 MG/DL (7-18); CALCIUM LEVEL 7.8 MG/DL (8.5-10.1); CARBON DIOXIDE LEVEL 29 MEQ/L (21-32); CHLORIDE LEVEL 109 MEQ/L (98-107); CPK CREATINE PHOSPHOKINASE 73 U/L (26-192); CREATININE FOR GFR 0.59 MG/DL (0.55-1.30); FERRITIN 42 NG/ML (8-252); GLOMERULAR FILTRATION RATE > 60.0 (>58); GLUCOSE, FASTING 99 MG/DL (70-100); LDH LACTATE DEHYDROGENASE 350 U/L (84-246); MAGNESIUM LEVEL 2.2 MG/DL (1.8-2.4); NT-PRO BNP 116 PG/ML (<125); POTASSIUM SERUM 3.9 MEQ/L (3.5-5.1); SODIUM LEVEL 143 MEQ/L (136-145); TOTAL PROTEIN 5.9 GM/DL (6.4-8.2); TROPONIN I < 0.02 NG/ML (< 0.10)
[2021-04-23] MEDS: ENOXAPARIN 100MG/1ML SYRINGE (J1650 PER 10MG) SC SCH ×2 (06:24→17:08)
[2021-04-23] MEDS: dexameTHASONE 4 MG/ML 1ML VIAL (J1100 PER 1MG) IV SCH (08:16)
[2021-04-23] MEDS: ASPIRIN 81MG ENTERIC TABLET PO SCH (08:16)
[2021-04-23] MEDS: BARICITINIB 2MG TABLET (OLUMIANT) FOR EUA PO SCH (08:17)
[2021-04-23] MEDS: amLODIPine 5 MG TAB PO SCH (08:17)
[2021-04-23] MEDS: guaiFENesin ER 600 MG TAB PO SCH ×2 (08:18→19:59)
[2021-04-23] MEDS: SODIUM CHLORIDE 0.9% INJ 10 ML SYR IV SCH (15:32)
[2021-04-23] MEDS: REMDESIVIR 100 MG in NS 250 ML IV SCH (15:32)
--- NOTE | 2021-04-23 18:11 | IPNPDOC ---
Date Seen The patient was seen on 04/23/21. Progress Note SUBJECTIVE: seen at bedside. Doing well this morning. FiO2 down to 25%. We will plan to decrease oxygenation to nasal cannula. Denies chest pain palpitation nausea vomit diarrhea OBJECTIVE PHYSICAL EXAMINATION: VITAL SIGNS: please see below General: NAD, comfortable HEENT: PERRLA, EOMI, sclerae clear Neck: supple, normal ROM, no JVD Respiratory: fair inspiratory effort, mild rhonchi in bilateral lung bases, no wheeze or crackles. CVS: RRR, normal S1, S2, no murmurs Abdo: soft, no masses, no hepatosplenomegaly, BS+, no rebound tenderness Extremities: no edema, pulses 2+ MSK: no joint deformities, normal ROM Neuro: no focal neuro deficits, moving all 4 extremities, CN2-12 [address] ength 5/5 in all 4 extremities. No nystagmus. Psych: calm, cooperative, AAO x 3 LABORATORY DATA, IMAGING STUDIES, MICROBIOLOGY: Please see below. DVT prophylaxis ordered?: weight based lovenox ppx. ASSESSMENT AND PLAN: 43-year-old female with a PMHx of HTN, Obesity, Migraines, Anxiety / Depression, and recent diagnosis of COVID19 (04/11/21) who presented to the ER with worsening shortness of breath. Patient was evaluated by hospital service on 04/15; with plans to return for monoclonal antibody infusion. Patient was admitted to the hospitalist service for further evaluation and tristan atment. Overnight, patient's oxygen saturations deteriorated requiring Vapotherm therapy PROBLEMS: Acute hypoxic respiratory failure - due to COVID19 pneumonia - patient unvaccinated. Was afraid to contract covid from vaccine itself. - Using CPAP at night, trouble tolerating. Unable to fully prone. Lying on side. - vapother 30 L/min at 25%. - Hemodynamically stable and afebrile - COVID19 positive on 04/11/2021 - Imaging noted above - Will trend inflammatory markers - c/w Dexamethasone (Day # 6) and Remdesivir (Day # 5) - Barcitinib (Day # 4) - c/w Incentive spirometry / Acapella / Mucinex / Encourage prone positioning -Downgrade to PCU, transfer out of ICU. HTN - BP elevated. - start amlodipine 5 mg daily. Obesity - BMI of 58.2 - Complicating medical care DVT prophylaxis - c/w weight-based Lovenox prophylactic dosing Dispo: - Awaiting clinical improvement, admission to span > 48 hours. VS, I&O, 24H, Fishbone Vital Signs/I&O Vital Signs Date Time Temp Pulse Resp B/P (MAP) Pulse Ox O2 Delivery O2 Flow Rate FiO2 04/23/21 17:00 96 Nasal Cannula 5.0 04/23/21 16:00 97.3 81 19 165/95 (118) 04/23/21 15:00 40 I&O- Last 24 Hours up to 6 AM 04/23/21 06:00 Intake Total 1570 ml Output Total 850 ml Balance 720 ml Laboratory Data 24H LABS Laboratory Tests 2 04/23/21 01:05: Bedside Glucose (Misc Panel) 108H 04/23/21 04:21: Immature Granulocyte % (Auto) 1.1, Neutrophils (%) (Auto) 76.0H, Lymphocytes (%) (Auto) 15.5L, Monocytes (%) (Auto) 7.4, Eosinophils (%) (Auto) 0.0, Basophils ( %) (Auto) 0.0, Neutrophils # (Auto) 4.1, Lymphocytes # (Auto) 0.8L, Monocytes # (Auto) 0.4, Eosinophils # (Auto) 0.0, Basophils # (Auto) 0.0, Nucleated Red Blood Cells % (auto) 0.0, Prothrombin Time 13.9, Prothromb Time International Ratio 1.03, Activated Partial Thromboplast Time 32.9, Fibrinogen 465H, Anion Gap 5L, Glomerular Filtration Rate > 60.0, Calcium Level 7.8L, Magnesium Level 2.2, Ferritin 42, Total Bilirubin 0.5, Direct Bilirubin 0.2, Aspartate Amino Transf (AST/SGOT) 59H, Alanine Aminotransferase (ALT/SGPT) 47, Alkaline Phosphatase 63, Lactate Dehydrogenase 350H, Total Creatine Kinase 73, Troponin I < 0.02, NR-Bnr-C-Type Natriuretic Peptide 116, Total Protein 5.9L, Albumin 2.3L, Albumin/Globulin Ratio 0.6L, Procalcitonin <0.05 04/23/21 13:01: Bedside Glucose (Misc Panel) 122H 04/23/21 17:11: Bedside Glucose (Misc Panel) 130H CBC/BMP Laboratory Tests 04/23/21 04:21 Microbiology Microbiology 04/19/21 Blood Culture - Preliminary, Resulted No Growth after 72 hours. All specime... 04/19/21 Blood Culture - Preliminary, Resulted No Growth after 72 hours. All specime... GENOVEVA MATTA MD Apr 23, 2021 18:11
[2021-04-24] VITALS: BP 150/89; O2SAT 92
[2021-04-24 04:00] VITALS: O2SAT 95
[2021-04-24] MEDS: ENOXAPARIN 100MG/1ML SYRINGE (J1650 PER 10MG) SC SCH (06:04)
[2021-04-24 06:30] LABS: BASO % 0.2 % (0.0-1.0); EOS % 0.2 % (0.0-3.0); HEMATOCRIT 39.7 % (36.0-47.0); HEMOGLOBIN 12.4 g/dl (12.0-15.5); LYMPH % 16.9 % (24.0-44.0); MEAN CORPUSCULAR HGB CONC 31.2 g/dl (32.0-36.5); MEAN CORPUSCULAR VOLUME 83.2 fl (80.0-96.0); MONO # 0.5 10^3/uL (0.0-0.8); MONO % 8.3 % (2.0-8.0); NEUTROPHILS # 4.5 10^3/uL (1.5-8.5); NEUTROPHILS % 72.6 % (36.0-66.0); PLATELET COUNT, AUTOMATED 350 10^3/uL (150-450); RED BLOOD COUNT 4.77 10^6/uL (4.00-5.40); WHITE BLOOD COUNT 6.2 10^3/uL (4.0-10.0)
[2021-04-24 06:56] LABS: ALBUMIN 2.4 GM/DL (3.2-5.2); ALT/SGPT 43 U/L (12-78); BILIRUBIN,TOTAL 0.6 MG/DL (0.2-1.0); BLOOD UREA NITROGEN 14 MG/DL (7-18); CALCIUM LEVEL 8.1 MG/DL (8.5-10.1); CARBON DIOXIDE LEVEL 28 MEQ/L (21-32); CHLORIDE LEVEL 107 MEQ/L (98-107); CREATININE FOR GFR 0.71 MG/DL (0.55-1.30); GLOMERULAR FILTRATION RATE > 60.0 (>58); GLUCOSE, FASTING 85 MG/DL (70-100); MAGNESIUM LEVEL 2.4 MG/DL (1.8-2.4); POTASSIUM SERUM 3.5 MEQ/L (3.5-5.1); SODIUM LEVEL 141 MEQ/L (136-145)
[2021-04-24 08:00] VITALS: BP 140/78; O2SAT 85
[2021-04-24 08:14] VITALS: BP 140/78
[2021-04-24] MEDS: ASPIRIN 81MG ENTERIC TABLET PO SCH (08:14)
[2021-04-24] MEDS: amLODIPine 5 MG TAB PO SCH (08:14)
[2021-04-24] MEDS: guaiFENesin ER 600 MG TAB PO SCH (08:14)
[2021-04-24] MEDS: BARICITINIB 2MG TABLET (OLUMIANT) FOR EUA PO SCH (08:15)
[2021-04-24] MEDS: dexameTHASONE 4 MG/ML 1ML VIAL (J1100 PER 1MG) IV SCH (08:15)
[2021-04-24 12:00] VITALS: O2SAT 93
[2021-04-24 12:01] VITALS: BP 142/97
[2021-04-24] MEDS ORDERED: MUCI600T31 PO (14:54)
[2021-04-24] MEDS ORDERED: ASPI-551 PO (14:54)
[2021-04-24] MEDS ORDERED: COMBAER6 INH (14:54)
[2021-04-24] MEDS ORDERED: AMLO1TAB24 PO (14:54)
[2021-04-24] MEDS ORDERED: ACET1TAB55 PO (14:54)
[2021-04-24] MEDS ORDERED: PRED10TA2 PO (14:54)
[2021-04-24] MEDS ORDERED: PANT40TA29 PO (14:58)
--- NOTE | 2021-05-26 07:36 | DS.PDOC ---
Discharge Summary General Date of Admission Apr 19, 2021 at 01:00 Date of Discharge 04/24/21 Discharge Summary PROCEDURES PERFORMED DURING STAY: [None]. ADMITTING DIAGNOSES: SIRS Hypoxemia 2/2 covid Essential HTN Class 3 obesity DISCHARGE DIAGNOSES: SIRS Hypoxemia 2/2 covid Essential HTN Class 3 obesity COMPLICATIONS/CHIEF COMPLAINT: Covid-19, Sirs. HISTORY OF PRESENT ILLNESS: Sary, a 41 yr old F, has not received COVID vaccines, and was diagnosed with COVID at an outside facility on Apr 11. On Apr 15 she was evaluated by our service in the ER and plans were in place for her to return for [facility] in a few days, but she returned today with c/o worsening shortness of breath, cough productive of clear sputum, chest pain when she coughs, and abdominal pain that is associated with watery diarrhea. She denies vomiting, losing her sense of taste or having any rashes. Per d/w MARY Gonzalez the patients O2 sats dropped to 86% with exertion HOSPITAL COURSE: Acute hypoxic respiratory failure - due to COVID19 pneumonia - patient unvaccinated. Was afraid to contract covid from vaccine itself. - Using CPAP at night, trouble tolerating. Unable to fully prone. Lying on side. - Hemodynamically stable and afebrile - COVID19 positive on 04/11/2021 - Imaging noted above - s/p Dexamethasone (5 days) and Remdesivir (5 days) - Barcitinib (5 days) - c/w Incentive spirometry / Acapella / Mucinex / Encourage prone positioning - patient wishes to go home. She was able to weaned off of vapotherm and was saturating > 92% on 2-3L O2 with ambulation around her room. - Home oxygen with portability was arranged. HTN - started amlodipine 5 mg daily. Obesity - BMI of 58.2 - Complicating medical care DISCHARGE MEDICATIONS: Please see below. ALLERGIES: Please see below. PHYSICAL EXAMINATION ON DISCHARGE: VITAL SIGNS: please see below General: NAD, comfortable HEENT: PERRLA, EOMI, sclerae clear Neck: supple, normal ROM, no JVD Respiratory: fair inspiratory effort, mild rhonchi in bilateral lung bases, no wheeze or crackles. CVS: RRR, normal S1, S2, no murmurs Abdo: soft, no masses, no hepatosplenomegaly, BS+, no rebound tenderness Extremities: no edema, pulses 2+ MSK: no joint deformities, normal ROM Neuro: no focal neuro deficits, moving all 4 extremities, CN2-12 intact. Strength 5/5 in all 4 extremities. No nystagmus. Psych: calm, cooperative, AAO x 3 LABORATORY DATA: Please see below. IMAGING: CXR (04/20/21): Moderate bilateral opacities and pleural effusions unchanged. CXR (04/19/21): Ill-defined pulmonary opacities bilaterally PROGNOSIS: good ACTIVITY: [As tolerated]. DIET: as tolerated DISCHARGE PLAN: DC home with close PCP follow up 3-5 days. Continue with supplemental oxygen. Continue prednisone taper. Monitor pulse ox levels, pulse oximeter provided. Minimal exertion recommended. DISPOSITION: Home Health Service. ITEMS TO FOLLOWUP ON ON OUTPATIENT: final blood cultures. DISCHARGE CONDITION: [Stable]. TIME SPENT ON DISCHARGE: 35 minutes. Discharge Medications Scheduled Amlodipine Besylate (Amlodipine Besylate) 5 Mg Tablet, 5 MG PO DAILY Aspirin (Aspirin EC) 81 Mg Tablet.dr, 81 MG PO DAILY Guaifenesin (Mucinex) 600 Mg Tab.er.12h, 1,200 MG PO BID Ipratropium/Albuterol Sulfate (Combivent Respimat 20-100 Mcg) 4 Gm Mist.inhal, 1 PUFF INH QID Pantoprazole Sodium (Pantoprazole Sodium) 40 Mg Tablet.dr, 1 TAB PO DAILY Prednisone (Prednisone) 10 Mg Tablet, 10 MG PO TAPER Take 4 tabs daily x 3 days, then 3 tabs daily x 3 days, then 2 tabs daily x 3 days, then 1 tab daily x 3 days and stop Scheduled PRN Acetaminophen (Acetaminophen) 325 Mg Tablet, 650 MG PO Q6HP PRN for MILD PAIN or TEMP > 101 Allergies Coded Allergies: bee venom protein (honey bee) (Verified Allergy, Severe, swelling, 04/18/21) Penicillins (Verified Allergy, Intermediate, 04/18/21) erythromycin base (Verified Allergy, Intermediate, 04/18/21) GENOVEVA MATTA MD May 26, 2021 07:36
== END 2021-04-24 15:38 | disposition home health service (06) | DRG 137 ==
LOC: M ED 19:29 → M ED INP 04-19 01:00 → ENRESERV 04-19 01:36 → M 4MAIN 04-19 02:45 → M ICU 04-20 16:20
PROVIDERS: ADMIT Internal Medicine; ATTEND Internal Medicine
PROC: XW033E5 Introduction of Remdesivir Anti-infective into Peripheral Vein, Percutaneous Approach, New Technology Group 5 (ICD-10-PCS; principal; 2021-04-20)
PROC: 3E0333Z Introduction of Anti-inflammatory into Peripheral Vein, Percutaneous Approach (ICD-10-PCS; 2021-04-20)
DX: U07.1 COVID-19 (principal); J96.01 Acute respiratory failure with hypoxia; J12.82 Pneumonia due to coronavirus disease 2019; Z68.43 Body mass index [BMI] 50.0-59.9, adult; I10 Essential (primary) hypertension; E66.9 Obesity, unspecified; G43.909 Migraine, unspecified, not intractable, without status migrainosus; F41.9 Anxiety disorder, unspecified; F32.9 Major depressive disorder, single episode, unspecified; Z88.1 Allergy status to other antibiotic agents; Z88.0 Allergy status to penicillin; Z91.030 Bee allergy status

== ENCOUNTER 2021-07-08 11:42 | Emergency (ER) | payer OTHER ==
[~2021-07-08 11:42] MED LIST changes: +ACET1TAB55 PO; +AMLO1TAB24 PO; +ASPI-551 PO; +COMBAER6 INH; +MUCI600T31 PO; +PANT40TA29 PO; +PRED10TA2 PO
--- NOTE | 2021-07-08 12:30 | REP ---
INDICATION: pain/edema COMPARISON: None. TECHNIQUE: Nathan scale and color Doppler evaluation using linear high frequency transducer. FINDINGS: Ultrasound examination of the right upper extremity including visualized jugular, subclavian, axillary, brachial, basilic and cephalic veins demonstrate normal venous flow characteristics without deep venous thrombosis. Contralateral subclavian vein is patent. IMPRESSION: No evidence for deep venous thrombosis. <Electronically signed by Erwin Encinas > 07/08/21 [id number]
[2021-07-08 18:11] LABS: BASO % 0.5 % (0.0-1.0); EOS # 0.4 10^3/uL (0.0-0.5); EOS % 4.3 % (0.0-3.0); HEMATOCRIT 41.3 % (36.0-47.0); HEMOGLOBIN 12.7 g/dl (12.0-15.5); LYMPH # 2.4 10^3/uL (1.5-5.0); LYMPH % 29.8 % (24.0-44.0); MEAN CORPUSCULAR HEMOGLOBIN 25.5 pg (27.0-33.0); MEAN CORPUSCULAR HGB CONC 30.8 g/dl (32.0-36.5); MEAN CORPUSCULAR VOLUME 82.8 fl (80.0-96.0); MONO # 0.5 10^3/uL (0.0-0.8); MONO % 5.8 % (2.0-8.0); NEUTROPHILS # 4.8 10^3/uL (1.5-8.5); PLATELET COUNT, AUTOMATED 399 10^3/uL (150-450); RED BLOOD COUNT 4.99 10^6/uL (4.00-5.40); WHITE BLOOD COUNT 8.1 10^3/uL (4.0-10.0)
[2021-07-08 18:23] LABS: BLOOD UREA NITROGEN 11 MG/DL (7-18); CALCIUM LEVEL 8.9 MG/DL (8.5-10.1); CARBON DIOXIDE LEVEL 25 MEQ/L (21-32); CHLORIDE LEVEL 108 MEQ/L (98-107); CREATININE FOR GFR 0.93 MG/DL (0.55-1.30); GLOMERULAR FILTRATION RATE > 60.0 (>58); GLUCOSE, FASTING 98 MG/DL (70-100); SODIUM LEVEL 140 MEQ/L (136-145)
--- NOTE | 2021-07-08 18:43 | REP ---
INDICATION: arm pain COMPARISON: None. TECHNIQUE: Three views right shoulder. FINDINGS: There is no evidence of acute fracture, dislocation, or intrinsic bone disease. IMPRESSION: No fracture or dislocation. <Electronically signed by Navin Nathan > 07/08/21 [id number]
[2021-07-08 19:18] VITALS: BP 136/85
== END 2021-07-08 19:19 | disposition home or self-care (01) ==
LOC: M ED 11:42
DX: R22.31 Localized swelling, mass and lump, right upper limb (principal); M79.601 Pain in right arm; Z86.16 Personal history of COVID-19; Z79.899 Other long term (current) drug therapy; Z88.0 Allergy status to penicillin; Z91.030 Bee allergy status

== ENCOUNTER 2021-07-31 18:07 | Emergency (ER) | payer OTHER ==
[~2021-07-31] VITALS: Ht 167.6 cm; Wt 171.6 kg
[2021-07-31 18:08] VITALS: BP 175/93
[2021-07-31] MEDS ORDERED: ALBU83IN (18:30)
[2021-07-31] MEDS ORDERED: Oxygen NARES (18:30)
[2021-07-31] MEDS ORDERED: PRED20TA PO (19:50)
[2021-07-31] MEDS ORDERED: predniSONE 20 MG TAB PO ONE (19:50)
== END 2021-07-31 20:18 | disposition home or self-care (01) ==
LOC: M ED 18:07
DX: M62.838 Other muscle spasm (principal); M25.511 Pain in right shoulder; E66.9 Obesity, unspecified; I10 Essential (primary) hypertension; F41.9 Anxiety disorder, unspecified; F31.89 Other bipolar disorder; Z88.0 Allergy status to penicillin; Z91.030 Bee allergy status
CPT/HCPCS: 99282; J7512

== ENCOUNTER → 2021-09-14 | Outpatient (REF) | payer OTHER ==
[~2021-09-14] MED LIST changes: +ALBU83IN; +Oxygen NARES
[2021-09-14 18:26] LABS: APPEARANCE, URINE HAZY (CLEAR); BACTERIA, URINE AUTO 1+ (NEGATIVE); BILIRUBIN, URINE AUTO NEGATIVE (NEGATIVE); BLOOD, URINE BLOOD NEGATIVE (NEGATIVE); COLOR, URINE YELLOW (YELLOW); GLUCOSE, URINE (UA) AUTO NEGATIVE (NEGATIVE); KETONE, URINE AUTO NEGATIVE (NEGATIVE); LEUKOCYTE ESTERASE, URINE AUTO 3+ (NEGATIVE); NITRITE, URINE AUTO NEGATIVE (NEGATIVE); PROTEIN, URINE AUTO NEGATIVE (NEGATIVE); RBC, URINE AUTO 1 /HPF (0-3); SPECIFIC GRAVITY URINE AUTO 1.015 (1.002-1.035); SQUAMOUS EPITHELIAL CELL UR AU 4 /HPF (0-6); UROBILINOGEN, URINE AUTO 0.2 mg/dL (0.0-2.0); WBC, URINE AUTO 5 /HPF (0-3)
[2021-09-14 19:57] LABS: GC DNA AMPLIFICATION NEGATIVE (NEGATIVE)
== END ==
LOC: M LAB REF 17:58
PROVIDERS: ATTEND Physician Assistant Medical
DX: N39.0 Urinary tract infection, site not specified (principal)

== ENCOUNTER → 2021-09-15 | Outpatient (CLI) | payer OTHER | LOC: M RAD 09:47 | PROVIDERS: ATTEND Family Medicine Addiction Medicine | DX: R22.31 Localized swelling, mass and lump, right upper limb (principal) ==

== ENCOUNTER 2021-10-26 17:33 | Emergency (ER) | payer OTHER ==
[~2021-10-26] VITALS: Ht 167.6 cm; Wt 172.7 kg
[2021-10-26 18:50] LABS: BASO % 0.4 % (0.0-1.0); EOS # 0.4 10^3/uL (0.0-0.5); EOS % 3.8 % (0.0-3.0); HEMATOCRIT 40.5 % (36.0-47.0); HEMOGLOBIN 12.4 g/dl (12.0-15.5); LYMPH # 2.5 10^3/uL (1.5-5.0); LYMPH % 27.4 % (24.0-44.0); MEAN CORPUSCULAR HEMOGLOBIN 24.7 pg (27.0-33.0); MEAN CORPUSCULAR HGB CONC 30.6 g/dl (32.0-36.5); MEAN CORPUSCULAR VOLUME 80.7 fl (80.0-96.0); MONO # 0.7 10^3/uL (0.0-0.8); MONO % 7.6 % (2.0-8.0); NEUTROPHILS # 5.5 10^3/uL (1.5-8.5); NEUTROPHILS % 60.4 % (36.0-66.0); PLATELET COUNT, AUTOMATED 380 10^3/uL (150-450); RED BLOOD COUNT 5.02 10^6/uL (4.00-5.40); WHITE BLOOD COUNT 9.2 10^3/uL (4.0-10.0)
[2021-10-26 19:08] LABS: CK-MB VALUE MASS < 1.0 NG/ML (<3.6); CPK CREATINE PHOSPHOKINASE 67 U/L (26-192); MB/CK RELATIVE INDEX 1.49 (< OR =4)
[2021-10-26 19:41] LABS: BLOOD UREA NITROGEN 9 MG/DL (7-18); CALCIUM LEVEL 9.2 MG/DL (8.5-10.1); CARBON DIOXIDE LEVEL 31 MEQ/L (21-32); CHLORIDE LEVEL 104 MEQ/L (98-107); CREATININE FOR GFR 0.98 MG/DL (0.55-1.30); FREE T4 1.18 NG/DL (0.76-1.46); GLOMERULAR FILTRATION RATE > 60.0 (>58); GLUCOSE, FASTING 92 MG/DL (70-100); MAGNESIUM LEVEL 2.1 MG/DL (1.8-2.4); SODIUM LEVEL 139 MEQ/L (136-145)
[2021-10-26] MEDS ORDERED: ISOVUE-370 76% 100ML VIAL As Ordered ONE (19:44)
[2021-10-26 22:01] VITALS: BP 141/69
== END 2021-10-26 22:41 | disposition home or self-care (01) ==
LOC: M ED 17:33
DX: R55 Syncope and collapse (principal); R07.9 Chest pain, unspecified; I10 Essential (primary) hypertension; F31.9 Bipolar disorder, unspecified; Z88.0 Allergy status to penicillin; Z88.1 Allergy status to other antibiotic agents; Z91.030 Bee allergy status
CPT/HCPCS: 70450; 71275; 80048; 82550; 82553; 83735; 84439; 84443; 85025; 93005; 93041; 94760; 99285; Q9967

== ENCOUNTER → 2021-12-14 | Outpatient (CLI) | payer OTHER ==
[~2021-12-14] MED LIST changes: +ALBU2.5V10; -ALBU83IN
== END ==
LOC: M RAD 08:46
PROVIDERS: ATTEND Physician Assistant
DX: M79.601 Pain in right arm (principal); R60.0 Localized edema

== ENCOUNTER → 2021-12-25 | Outpatient (REF) | payer OTHER ==
[2021-12-25 17:56] LABS: AMORPHOUS SEDIMENT SMALL (NEGATIVE); APPEARANCE, URINE HAZY (CLEAR); BACTERIA, URINE AUTO NEGATIVE (NEGATIVE); BILIRUBIN, URINE AUTO NEGATIVE (NEGATIVE); BLOOD, URINE BLOOD NEGATIVE (NEGATIVE); COLOR, URINE YELLOW (YELLOW); GLUCOSE, URINE (UA) AUTO NEGATIVE (NEGATIVE); KETONE, URINE AUTO NEGATIVE (NEGATIVE); LEUKOCYTE ESTERASE, URINE AUTO 2+ (NEGATIVE); MUCUS, URINE SMALL (NEGATIVE); NITRITE, URINE AUTO NEGATIVE (NEGATIVE); PROTEIN, URINE AUTO NEGATIVE (NEGATIVE); RBC, URINE AUTO 1 /HPF (0-3); SPECIFIC GRAVITY URINE AUTO 1.016 (1.002-1.035); SQUAMOUS EPITHELIAL CELL UR AU 6 /HPF (0-6); UROBILINOGEN, URINE AUTO 0.2 mg/dL (0.0-2.0); WBC, URINE AUTO 6 /HPF (0-3)
== END ==
LOC: M LAB REF 16:39
PROVIDERS: ATTEND Physician Assistant
DX: N39.0 Urinary tract infection, site not specified (principal)

== ENCOUNTER → 2022-04-12 | Outpatient (REF) | payer OTHER | LOC: M WUC 11:56 | PROVIDERS: ATTEND Physician Assistant | DX: M54.50 Low back pain, unspecified (principal) ==

== ENCOUNTER → 2022-06-11 | Outpatient (REF) | payer OTHER | LOC: M SFHCPLAZ 17:12 | PROVIDERS: ATTEND Internal Medicine Infectious Disease | DX: N61.1 Abscess of the breast and nipple (principal) ==

== ENCOUNTER → 2022-07-21 | Outpatient (CLI) | payer OTHER | LOC: M WHC 11:44 | PROVIDERS: ATTEND Physician Assistant | DX: N61.1 Abscess of the breast and nipple (principal) ==

== ENCOUNTER → 2022-11-08 | Outpatient (REF) | payer OTHER | LOC: M SFHCPLAZ 12:57 | PROVIDERS: ATTEND Internal Medicine Infectious Disease | DX: L73.2 Hidradenitis suppurativa (principal) ==

== ENCOUNTER → 2022-12-30 | Outpatient (CLI) | payer OTHER | LOC: M WHC 07:27 | PROVIDERS: ATTEND Surgery | DX: N61.1 Abscess of the breast and nipple (principal) ==

== ENCOUNTER 2023-01-31 14:19 | Emergency (ER) | payer OTHER ==
[~2023-01-31] VITALS: Ht 167.6 cm; Wt 163.6 kg
[2023-01-31 14:43] VITALS: TEMP 98.5
[2023-01-31] MEDS ORDERED: NS 1,000 ML IV ONE (15:15)
[2023-01-31] MEDS ORDERED: ONDANSETRON 4MG 2ML VIAL IV ONE (15:15)
[2023-01-31 15:45] VITALS: BP 137/68
[2023-01-31 15:54] LABS: BASO # 0.1 10^3/uL (0.0-0.2); BASO % 0.6 % (0.0-1.0); EOS # 0.1 10^3/uL (0.0-0.5); EOS % 1.2 % (0.0-3.0); HEMATOCRIT 42.8 % (36.0-47.0); HEMOGLOBIN 14.1 g/dl (12.0-15.5); LYMPH # 2.5 10^3/uL (1.5-5.0); LYMPH % 26.6 % (24.0-44.0); MEAN CORPUSCULAR HEMOGLOBIN 30.1 pg (27.0-33.0); MEAN CORPUSCULAR HGB CONC 32.9 g/dl (32.0-36.5); MEAN CORPUSCULAR VOLUME 91.3 fl (80.0-96.0); MONO # 0.7 10^3/uL (0.0-0.8); MONO % 7.1 % (2.0-8.0); NEUTROPHILS # 5.9 10^3/uL (1.5-8.5); NEUTROPHILS % 64.1 % (36.0-66.0); PLATELET COUNT, AUTOMATED 341 10^3/uL (150-450); RED BLOOD COUNT 4.69 10^6/uL (4.00-5.40); WHITE BLOOD COUNT 9.2 10^3/uL (4.0-10.0)
[2023-01-31 16:27] LABS: LIPASE 52 U/L (12-53)
[2023-01-31 16:28] LABS: ALBUMIN 3.4 G/DL (3.2-5.2); ALKALINE PHOSPHATASE 77 U/L (46-116); ALT/SGPT 41 U/L (7.0-40); AST/SGOT 34 U/L (<34); BILIRUBIN,DIRECT 0.2 MG/DL (<0.4); BILIRUBIN,TOTAL 0.6 MG/DL (0.3-1.2); BLOOD UREA NITROGEN 13 MG/DL (9-23); CARBON DIOXIDE LEVEL 25 MMOL/L (20-31); CHLORIDE LEVEL 105 MMOL/L (98-107); CK-MB VALUE MASS < 1.0 NG/ML (<3.6); CREATININE FOR GFR 1.13 MG/DL (0.55-1.30); GLOMERULAR FILTRATION RATE 55.9 (>58); GLUCOSE, FASTING 97 MG/DL (60-100); POTASSIUM SERUM 3.4 MMOL/L (3.5-5.1); SODIUM LEVEL 137 MMOL/L (136-145); TOTAL PROTEIN 6.9 G/DL (5.7-8.2)
[2023-01-31 16:30] LABS: THYROID STIMULATING HORMONE 1.128 uIU/ML (0.55-4.78)
[2023-01-31 16:31] LABS: FREE T4 1.53 NG/DL (0.89-1.76)
[2023-01-31 16:32] LABS: CPK CREATINE PHOSPHOKINASE 73 U/L (34-145); MB/CK RELATIVE INDEX 1.36 (< OR =4)
[2023-01-31 16:41] LABS: RSV AMPLIFICATION NEGATIVE (NEGATIVE)
[2023-01-31] MEDS ORDERED: ISOVUE-370 76% 100ML VIAL As Ordered ONE (16:48)
[2023-01-31 17:15] LABS: CK-MB VALUE MASS < 1.0 NG/ML (<3.6)
[2023-01-31 17:19] LABS: CPK CREATINE PHOSPHOKINASE 85 U/L (34-145); MB/CK RELATIVE INDEX 1.17 (< OR =4)
[2023-01-31 17:34] VITALS: O2SAT 98
[2023-01-31] MEDS ORDERED: CIPROFLOXACIN 500MG TABLET PO ONE (18:35)
[2023-01-31] MEDS ORDERED: CIPR-249 PO (18:39)
[2023-01-31] MEDS ORDERED: ONDA4TAB6 PO (18:47)
== END 2023-01-31 19:09 | disposition home or self-care (01) ==
LOC: M ED 14:19 → EDBD 14:19 → M ED 19:09
DX: K52.9 Noninfective gastroenteritis and colitis, unspecified (principal); R10.9 Unspecified abdominal pain; R19.7 Diarrhea, unspecified; I10 Essential (primary) hypertension; R91.8 Other nonspecific abnormal finding of lung field; K57.30 Diverticulosis of large intestine without perforation or abscess without bleeding; Z88.0 Allergy status to penicillin; Z88.1 Allergy status to other antibiotic agents; Z91.030 Bee allergy status
CPT/HCPCS: 71045; 71275; 74177; 80047; 80048; 80076; 81001; 82550; 82553; 83690; 84439; 84443; 84702; 85025; 87086; 87507; 87631; 93005; 93041; 94760; 96374; 99285; J2405; Q9967

== ENCOUNTER → 2023-06-29 | Outpatient (REF) | payer OTHER ==
[~2023-06-29] MED LIST changes: +FURO40TA2; +LEVO150T7; +LEVO75TA4; +OLME1TAB49
== END ==
LOC: M LAB REF 16:17
PROVIDERS: ATTEND Nurse Practitioner Family
DX: R30.0 Dysuria (principal); L03.319 Cellulitis of trunk, unspecified

== ENCOUNTER 2023-10-02 18:04 | Emergency (ER) | payer OTHER ==
[~2023-10-02] VITALS: Ht 165.1 cm; Wt 143.2 kg
[2023-10-02 18:18] VITALS: BP 169/91; O2SAT 99
[2023-10-02 18:44] VITALS: TEMP 96.8
[2023-10-02] MEDS: EXCEDRIN MIGRAINE TABLET PO STA (20:49)
== END 2023-10-02 23:12 | disposition home or self-care (01) ==
LOC: M ED 18:04 → EDBD 18:04 → M ED 23:12
DX: S00.93XA Contusion of unspecified part of head, initial encounter (principal); W22.8XXA Striking against or struck by other objects, initial encounter; F41.9 Anxiety disorder, unspecified; I10 Essential (primary) hypertension; F31.9 Bipolar disorder, unspecified; Z88.0 Allergy status to penicillin; Z88.1 Allergy status to other antibiotic agents; Z91.030 Bee allergy status; Y92.009 Unspecified place in unspecified non-institutional (private) residence as the place of occurrence of the external cause; Y93.89 Activity, other specified; Y99.9 Unspecified external cause status; Z79.52 Long term (current) use of systemic steroids; Z79.899 Other long term (current) drug therapy

== ENCOUNTER 2023-12-01 14:09 | Emergency (ER) | payer OTHER ==
[2023-12-01 14:32] LABS: BASO # 0.1 10^3/uL (0.0-0.2); BASO % 0.8 % (0.0-1.0); EOS # 0.3 10^3/uL (0.0-0.5); EOS % 3.8 % (0.0-3.0); HEMATOCRIT 44.3 % (36.0-47.0); HEMOGLOBIN 14.6 g/dl (12.0-15.5); LYMPH # 2.4 10^3/uL (1.5-5.0); LYMPH % 33.8 % (24.0-44.0); MEAN CORPUSCULAR HEMOGLOBIN 29.4 pg (27.0-33.0); MEAN CORPUSCULAR VOLUME 89.3 fl (80.0-96.0); MONO # 0.5 10^3/uL (0.0-0.8); MONO % 7.3 % (2.0-8.0); NEUTROPHILS # 3.8 10^3/uL (1.5-8.5); NEUTROPHILS % 53.7 % (36.0-66.0); PLATELET COUNT, AUTOMATED 329 10^3/uL (150-450); RED BLOOD COUNT 4.96 10^6/uL (4.00-5.40); WHITE BLOOD COUNT 7.2 10^3/uL (4.0-10.0)
[2023-12-01 15:04] LABS: BLOOD UREA NITROGEN 11 MG/DL (9-23); CALCIUM LEVEL 9.4 MG/DL (8.5-10.1); CARBON DIOXIDE LEVEL 26 MMOL/L (20-31); CHLORIDE LEVEL 105 MMOL/L (98-107); CK-MB VALUE MASS < 1.0 NG/ML (<3.6); CPK CREATINE PHOSPHOKINASE 72 U/L (34-145); CREATININE FOR GFR 1.06 MG/DL (0.55-1.30); GLOMERULAR FILTRATION RATE > 60.0 (>58); GLUCOSE, FASTING 119 MG/DL (60-100); MAGNESIUM LEVEL 1.9 MG/DL (1.8-2.4); MB/CK RELATIVE INDEX 1.38 (< OR =4); SODIUM LEVEL 138 MMOL/L (136-145)
[2023-12-01 15:09] LABS: FREE T4 1.07 NG/DL (0.89-1.76); THYROID STIMULATING HORMONE 3.264 uIU/ML (0.55-4.78)
[2023-12-01 15:54] VITALS: O2SAT 98
[2023-12-01 15:56] VITALS: BP 132/73
== END 2023-12-01 17:18 | disposition home or self-care (01) ==
LOC: M ED 14:09
DX: R55 Syncope and collapse (principal); I10 Essential (primary) hypertension; F31.9 Bipolar disorder, unspecified; F41.9 Anxiety disorder, unspecified; Z79.899 Other long term (current) drug therapy; Z88.0 Allergy status to penicillin; Z88.1 Allergy status to other antibiotic agents; Z91.030 Bee allergy status

== ENCOUNTER 2024-03-25 13:41 | Emergency (ER) | payer OTHER ==
[~2024-03-25] VITALS: Ht 165.1 cm; Wt 159.1 kg
[~2024-03-25 13:41] MED LIST changes: -OLME1TAB49; +OLME1TAB91; +ONDA-282 PO; -ONDA4TAB6 PO
[2024-03-25 13:57] VITALS: TEMP 97.8
[2024-03-25] MEDS: NS 500 ML IV ONE (14:24)
[2024-03-25 14:38] LABS: BASO % 0.4 % (0.0-1.0); EOS # 0.1 10^3/uL (0.0-0.5); EOS % 1.3 % (0.0-3.0); HEMATOCRIT 43.9 % (36.0-47.0); HEMOGLOBIN 14.3 g/dl (12.0-15.5); LYMPH # 1.4 10^3/uL (1.5-5.0); LYMPH % 15.4 % (24.0-44.0); MEAN CORPUSCULAR HGB CONC 32.6 g/dl (32.0-36.5); MONO # 0.5 10^3/uL (0.0-0.8); MONO % 5.4 % (2.0-8.0); NEUTROPHILS % 77.1 % (36.0-66.0); PLATELET COUNT, AUTOMATED 329 10^3/uL (150-450); RED BLOOD COUNT 4.93 10^6/uL (4.00-5.40); WHITE BLOOD COUNT 9.1 10^3/uL (4.0-10.0)
[2024-03-25 14:57] LABS: BLOOD UREA NITROGEN 11 MG/DL (9-23); CALCIUM LEVEL 9.2 MG/DL (8.5-10.1); CARBON DIOXIDE LEVEL 25 MMOL/L (20-31); CHLORIDE LEVEL 107 MMOL/L (98-107); GLOMERULAR FILTRATION RATE 57.4 (>58); GLUCOSE, FASTING 104 MG/DL (60-100); MAGNESIUM LEVEL 1.9 MG/DL (1.8-2.4); SODIUM LEVEL 139 MMOL/L (136-145)
[2024-03-25 15:05] LABS: FREE T4 1.06 NG/DL (0.89-1.76)
[2024-03-25 15:27] LABS: HCG, SERUM QUALITATIVE NEGATIVE (NEGATIVE)
[2024-03-25 15:30] VITALS: BP 148/89; O2SAT 97
== END 2024-03-25 16:18 | disposition home or self-care (01) ==
LOC: M ED 13:41 → EDBD 13:41 → M ED 16:18
DX: R55 Syncope and collapse (principal); I10 Essential (primary) hypertension; E03.9 Hypothyroidism, unspecified; Z79.899 Other long term (current) drug therapy; Z88.0 Allergy status to penicillin; Z91.030 Bee allergy status

== ENCOUNTER → 2024-04-14 | Outpatient (REF) | payer OTHER | LOC: M LAB REF 22:02 | PROVIDERS: ATTEND Student in an Organized Health Care Education/Training Program | DX: R30.0 Dysuria (principal) ==

== ENCOUNTER 2024-06-22 12:14 | Emergency (ER) | payer OTHER ==
[~2024-06-22] VITALS: Ht 167.6 cm; Wt 172.7 kg
[2024-06-22] MEDS ORDERED: ONDA-282 (12:34)
[2024-06-22] MEDS: ACETAMINOPHEN 500 MG TAB PO ONE (14:11)
[2024-06-22 15:31] VITALS: BP 138/89; TEMP 97.7; O2SAT 96
== END 2024-06-22 15:45 | disposition home or self-care (01) ==
LOC: M ED 12:14
DX: S82.101A Unspecified fracture of upper end of right tibia, initial encounter for closed fracture (principal); X50.1XXA Overexertion from prolonged static or awkward postures, initial encounter; Y92.009 Unspecified place in unspecified non-institutional (private) residence as the place of occurrence of the external cause; Y93.9 Activity, unspecified; Y99.9 Unspecified external cause status; I10 Essential (primary) hypertension; E03.9 Hypothyroidism, unspecified; F31.9 Bipolar disorder, unspecified; Z79.899 Other long term (current) drug therapy; Z88.0 Allergy status to penicillin; Z91.030 Bee allergy status

== ENCOUNTER → 2024-08-20 | Outpatient (CLI) | payer OTHER ==
[~2024-08-20] MED LIST changes: +ONDA-282
== END ==
LOC: M SOG 07:54
PROVIDERS: ATTEND Physician Assistant
DX: S82.101D Unspecified fracture of upper end of right tibia, subsequent encounter for closed fracture with routine healing (principal); Z53.9 Procedure and treatment not carried out, unspecified reason

== ENCOUNTER → 2024-09-18 | Outpatient (CLI) | payer OTHER | LOC: M SOG 07:51 | PROVIDERS: ATTEND Physician Assistant | DX: S82.101A Unspecified fracture of upper end of right tibia, initial encounter for closed fracture (principal); Y93.9 Activity, unspecified; Y92.9 Unspecified place or not applicable ==

== ENCOUNTER → 2024-11-15 | Outpatient (REF) | payer OTHER | LOC: M LAB REF 11:38 | PROVIDERS: ATTEND Physician Assistant | DX: R30.0 Dysuria (principal) ==